=== PATIENT | male | born 1940 | race Two or more races ===

== ENCOUNTER 2017-04-23 16:24 | Inpatient (IN) | payer MEDICARE, OTHER ==
[~2017-04-23] VITALS: Ht 170.2 cm; Wt 59.4 kg
[2017-04-23 16:50] LABS: BASOPHILS % (AUTO) 0.3 % (0.0-2.0); EOSINOPHILS # (AUTO) 0.5 /CMM (0.0-0.7); EOSINOPHILS % (AUTO) 4.2 % (0.0-6.0); HEMATOCRIT 29 % (39-51); HEMOGLOBIN 10.1 g/dL (13.5-17.5); LYMPHOCYTES % (AUTO) 17.1 % (20.0-44.0); MEAN CORPUSCULAR HEMOGLOBIN 30 PG (26.0-33.0); MEAN CORPUSCULAR HGB CONC 34 g/dl (31.0-36.0); MEAN CORPUSCULAR VOLUME 87 fL (80-96); MONOCYTES # (AUTO) 0.9 /CMM (0.1-1.30); MONOCYTES % (AUTO) 7.5 % (2.0-12.0); NEUTROPHILS # (AUTO) 8.2 /CMM (1.8-8.9); NEUTROPHILS % (AUTO) 70.9 % (43.0-81.0); PLATELET COUNT (AUTO) 382 /CMM (150-450); RDW COEFFICIENT OF VARIATION 14.6 (11.5-15.0); RED BLOOD CELL COUNT(AUTO) 3.36 MIL/uL (4.5-6.0); WHITE BLOOD COUNT (AUTO) 11.6 K/uL (4.3-11.0)
[2017-04-23 17:02] LABS: CALCIUM, SERUM 10.3 mg/dL (8.5-10.1); CARBON DIOXIDE 24 mmol/L (21-32); CHLORIDE 98 mmol/L (98-107); CREATININE 1.4 mg/dL (0.6-1.3); GLUCOSE 119 mg/dL (74-106); POTASSIUM 3.8 mmol/L (3.5-5.1); SODIUM SERUM 131 mmol/L (136-145); UREA NITROGEN, BLOOD 26 mg/dL (7-18)
[2017-04-23 17:07] LABS: ACETAMINOPHEN 4 ug/ml (10-30); ALANINE AMINOTRANSFERASE 13 U/L (12-78); ALBUMIN 3.4 g/dL (3.4-5.0); ALCOHOL, BLOOD < 3 mg/dL (0-0); ALKALINE PHOSPHATASE 119 U/L (46-116); ASPARTATE AMINOTRANSFERASE 19 U/L (15-37); BILIRUBIN,DIRECT 0.1 mg/dL (0.0-0.2); BILIRUBIN,TOTAL 0.4 mg/dL (0.2-1.0); TOTAL PROTEIN, SERUM 7.3 g/dL (6.4-8.2)
[2017-04-23 17:14] LABS: SALICYLATE 1.2 mg/dL (2.8-20.0)
[2017-04-23] MEDS ORDERED: AMLO10TA2 PO (19:13)
[2017-04-23] MEDS ORDERED: ASCO-340 PO (19:13)
[2017-04-23] MEDS ORDERED: ACET-868 PO (19:13)
[2017-04-23] MEDS ORDERED: CRAN425C PO (19:13)
[2017-04-23] MEDS ORDERED: BISA10SU8 RC (19:13)
[2017-04-23] MEDS ORDERED: POLY119P2 PO (19:13)
[2017-04-23] MEDS ORDERED: MELO-270 PO (19:13)
[2017-04-23] MEDS ORDERED: MIRT15TA PO (19:13)
[2017-04-23] MEDS ORDERED: ONDA4TAB5 PO (19:13)
[2017-04-23] MEDS ORDERED: HYDR-552 PO (19:13)
[2017-04-23] MEDS ORDERED: TICA90TA PO (19:13)
[2017-04-23] MEDS ORDERED: NITR0.4T6 SL (19:13)
[2017-04-23] MEDS ORDERED: OXCA300T4 PO (19:13)
[2017-04-23] MEDS ORDERED: HYDR-4076 PO (19:13)
[2017-04-23] MEDS ORDERED: RANO500T3 PO (19:13)
[2017-04-23] MEDS ORDERED: OXYB5TAB11 PO (19:13)
[2017-04-23] MEDS ORDERED: MAGN400T6 PO (19:13)
[2017-04-23] MEDS ORDERED: FEBU80TA PO (19:13)
[2017-04-23] MEDS ORDERED: LACT1CAP61 PO (19:13)
[2017-04-23] MEDS ORDERED: NIAC500T2 PO (19:13)
[2017-04-23] MEDS ORDERED: CARV25TA PO (19:13)
[2017-04-23] MEDS ORDERED: ASPI81TA2 PO (19:13)
[2017-04-23] MEDS ORDERED: LINA290C PO (19:13)
[2017-04-23] MEDS ORDERED: MULT-213 PO (19:13)
[2017-04-23] MEDS ORDERED: DOCU-25 PO (19:13)
[2017-04-23] MEDS ORDERED: MAGN400O6 PO (19:13)
[2017-04-23] MEDS ORDERED: TAMS-12 PO (19:13)
[2017-04-23] MEDS ORDERED: BISACODYL SUPP (10 MG) 10 MG/SUPP.RECT SUPP.RECT RC PRN (19:30)
[2017-04-23] MEDS ORDERED: ONDANSETRON HCL 4 MG/5 ML SOLUTION PO PRN (19:30)
[2017-04-23] MEDS ORDERED: MISCELLANEOUS MED 1 EA EA XX ONE (19:30)
[2017-04-23] MEDS ORDERED: NITROGLYCERIN 0.4 MG/TAB BOTTLE SL SCH (19:30)
[2017-04-23] MEDS ORDERED: MAGNESIUM HYDROXIDE 30 ML UDC PO PRN ×2 (19:30→21:30)
[2017-04-23] MEDS ORDERED: MAG HYDROX/AL HYDROX/SIMETH 30 ML UDC PO PRN (21:30)
[2017-04-23] MEDS ORDERED: ACETAMINOPHEN 325 MG TABLET PO PRN (21:30)
[2017-04-23] MEDS: TAMSULOSIN 0.4 MG CAP.SR.24H PO SCH (21:35)
[2017-04-23] MEDS: CARVEDILOL 12.5 MG TABLET PO SCH (21:35)
[2017-04-23] MEDS ORDERED: NIACIN 250 MG TABLET.SA PO SCH (22:00)
[2017-04-24] MEDS ORDERED: Z GUARD REMEDY 2 OZ OINT TP PRN (07:00)
[2017-04-24 07:03] LABS: CARBON DIOXIDE 24 mmol/L (21-32); CHLORIDE 97 mmol/L (98-107); CREATININE 1.3 mg/dL (0.6-1.3); GLUCOSE 98 mg/dL (74-106); POTASSIUM 3.7 mmol/L (3.5-5.1); SODIUM SERUM 131 mmol/L (136-145); UREA NITROGEN, BLOOD 26 mg/dL (7-18)
[2017-04-24 07:09] LABS: ALANINE AMINOTRANSFERASE 7 U/L (12-78); ALBUMIN 3.2 g/dL (3.4-5.0); ALKALINE PHOSPHATASE 114 U/L (46-116); ASPARTATE AMINOTRANSFERASE 16 U/L (15-37); BILIRUBIN,DIRECT 0.1 mg/dL (0.0-0.2); BILIRUBIN,TOTAL 0.5 mg/dL (0.2-1.0); MAGNESIUM 1.4 mg/dL (1.8-2.4); PHOSPHORUS 3.1 mg/dL (2.5-4.9); TOTAL PROTEIN, SERUM 6.9 g/dL (6.4-8.2)
[2017-04-24 07:18] LABS: CHOLESTEROL 227 mg/dL (<200); HDL CHOLESTEROL 56 mg/dL (40-60); LDL 134 mg/dL (0-99); THYROID STIMULATING HORMONE 9.912 uIU/mL (0.358-3.74); TRIGLYCERIDES 126 mg/dL (30-150)
[2017-04-24 08:17] VITALS: BP 141/66
[2017-04-24] MEDS: MULTIVITAMINS,THERAGRAN 1 UDTAB TABLET PO SCH (08:34)
[2017-04-24] MEDS: DOCUSATE SODIUM 100 MG CAPSULE PO SCH ×2 (08:34→16:28)
[2017-04-24] MEDS: ASPIRIN 81 MG TAB.CHEW PO SCH (08:35)
[2017-04-24] MEDS: MAGNESIUM OXIDE 400 MG TABLET PO SCH ×2 (08:35→16:28)
[2017-04-24] MEDS: LACTOBACILLUS RHAMNOSUS GG 1 EACH CAP.SPRINK PO SCH (08:35)
[2017-04-24] MEDS: AMLODIPINE BESYLATE 10 MG TABLET PO SCH (08:35)
[2017-04-24] MEDS: MELOXICAM 7.5 MG TABLET PO SCH ×2 (08:35→16:28)
[2017-04-24] MEDS: ASCORBIC ACID 500 MG TABLET PO SCH (08:35)
[2017-04-24] MEDS: CLOPIDOGREL BISULFATE 75 MG TABLET PO SCH (08:35)
[2017-04-24] MEDS: CARVEDILOL 12.5 MG TABLET PO SCH ×2 (08:35→21:29)
[2017-04-24] MEDS: OXYBUTYNIN CHLORIDE 5 MG TABLET PO SCH (08:35)
[2017-04-24] MEDS ORDERED: TICAGRELOR 90 MG TABLET PO SCH (09:00)
[2017-04-24] MEDS ORDERED: FEBUXOSTAT 80 MG PO SCH (09:00)
[2017-04-24] MEDS ORDERED: OXCARBAZEPINE 150 MG TABLET PO SCH (09:00)
[2017-04-24] MEDS: LEVOTHYROXINE SODIUM 50 MCG TABLET PO SCH (13:39)
[2017-04-24 16:00] VITALS: BP 129/60
[2017-04-24 20:00] VITALS: BP 138/61
[2017-04-24] MEDS: ZOLPIDEM TARTRATE 5 MG TABLET PO PRN (21:30)
[2017-04-24] MEDS: TAMSULOSIN 0.4 MG CAP.SR.24H PO SCH (21:30)
[2017-04-25] MEDS ORDERED: Z GUARD REMEDY 4 OZ OINT TP PRN (05:00)
[2017-04-25 08:00] VITALS: BP 136/65
[2017-04-25] MEDS: ASCORBIC ACID 500 MG TABLET PO SCH (08:09)
[2017-04-25] MEDS: SERTRALINE HCL 25 MG TABLET PO SCH (08:09)
[2017-04-25] MEDS: ARIPIPRAZOLE 2 MG TABLET PO SCH (08:09)
[2017-04-25] MEDS: OXYBUTYNIN CHLORIDE 5 MG TABLET PO SCH (08:09)
[2017-04-25] MEDS: MULTIVITAMINS,THERAGRAN 1 UDTAB TABLET PO SCH (08:09)
[2017-04-25] MEDS: ASPIRIN 81 MG TAB.CHEW PO SCH (08:09)
[2017-04-25] MEDS: CLOPIDOGREL BISULFATE 75 MG TABLET PO SCH (08:09)
[2017-04-25] MEDS: LACTOBACILLUS RHAMNOSUS GG 1 EACH CAP.SPRINK PO SCH (08:09)
[2017-04-25] MEDS: MAGNESIUM OXIDE 400 MG TABLET PO SCH ×2 (08:09→17:24)
[2017-04-25] MEDS: LEVOTHYROXINE SODIUM 50 MCG TABLET PO SCH (08:09)
[2017-04-25] MEDS: MELOXICAM 7.5 MG TABLET PO SCH ×2 (08:09→17:24)
[2017-04-25] MEDS: AMLODIPINE BESYLATE 10 MG TABLET PO SCH (08:10)
[2017-04-25] MEDS: DOCUSATE SODIUM 100 MG CAPSULE PO SCH ×2 (08:10→17:24)
[2017-04-25] MEDS: CARVEDILOL 12.5 MG TABLET PO SCH ×2 (08:11→21:00)
[2017-04-25] MEDS: Z GUARD REMEDY 4 OZ OINT TP SCH (10:36)
[2017-04-25] MEDS: ACETAMINOPHEN 325 MG TABLET PO PRN (11:10)
[2017-04-25 20:00] VITALS: BP 146/58
[2017-04-25] MEDS: TAMSULOSIN 0.4 MG CAP.SR.24H PO SCH (21:25)
[2017-04-25] MEDS: ZOLPIDEM TARTRATE 5 MG TABLET PO PRN ×2 (21:27→22:59)
[2017-04-25] MEDS ORDERED: NIACIN EXT TAB (500MG) 500 MG TABLET.SA PO SCH (22:00)
[2017-04-25] MEDS ORDERED: ZOLPIDEM TARTRATE 5 MG TABLET ONE (22:45)
[2017-04-26] MEDS: ACETAMINOPHEN 325 MG TABLET PO PRN (00:47)
[2017-04-26 07:26] LABS: CALCIUM, SERUM 9.2 mg/dL (8.5-10.1); CARBON DIOXIDE 23 mmol/L (21-32); CHLORIDE 99 mmol/L (98-107); CREATININE 1.2 mg/dL (0.6-1.3); GLUCOSE 110 mg/dL (74-106); POTASSIUM 3.4 mmol/L (3.5-5.1); SODIUM SERUM 132 mmol/L (136-145); UREA NITROGEN, BLOOD 24 mg/dL (7-18)
[2017-04-26] MEDS: LEVOTHYROXINE SODIUM 50 MCG TABLET PO SCH (08:03)
[2017-04-26 08:19] VITALS: BP 117/52
[2017-04-26] MEDS: LACTOBACILLUS RHAMNOSUS GG 1 EACH CAP.SPRINK PO SCH (09:06)
[2017-04-26] MEDS: CLOPIDOGREL BISULFATE 75 MG TABLET PO SCH (09:06)
[2017-04-26] MEDS: MELOXICAM 7.5 MG TABLET PO SCH ×2 (09:06→17:00)
[2017-04-26] MEDS: ARIPIPRAZOLE 2 MG TABLET PO SCH (09:06)
[2017-04-26] MEDS: SERTRALINE HCL 25 MG TABLET PO SCH (09:06)
[2017-04-26] MEDS: MAGNESIUM OXIDE 400 MG TABLET PO SCH ×2 (09:07→17:00)
[2017-04-26] MEDS: OXYBUTYNIN CHLORIDE 5 MG TABLET PO SCH (09:10)
[2017-04-26] MEDS: MULTIVITAMINS,THERAGRAN 1 UDTAB TABLET PO SCH (09:10)
[2017-04-26] MEDS: ASPIRIN 81 MG TAB.CHEW PO SCH (09:10)
[2017-04-26] MEDS: ASCORBIC ACID 500 MG TABLET PO SCH (09:10)
[2017-04-26] MEDS: AMLODIPINE BESYLATE 10 MG TABLET PO SCH (09:10)
[2017-04-26] MEDS: DOCUSATE SODIUM 100 MG CAPSULE PO SCH ×2 (09:11→17:00)
[2017-04-26] MEDS: CARVEDILOL 12.5 MG TABLET PO SCH ×2 (09:11→20:48)
[2017-04-26] MEDS: Z GUARD REMEDY 4 OZ OINT TP SCH (09:11)
[2017-04-26] MEDS ORDERED: NIACIN 250 MG TABLET.SA PO SCH (15:30)
[2017-04-26 15:53] VITALS: BP 144/69
[2017-04-26 20:00] VITALS: BP 156/79
[2017-04-26] MEDS: TAMSULOSIN 0.4 MG CAP.SR.24H PO SCH (20:49)
[2017-04-26] MEDS: risperiDONE 1 MG TABLET PO SCH (20:49)
[2017-04-26] MEDS: ZOLPIDEM TARTRATE 5 MG TABLET PO PRN ×2 (20:53→23:13)
[2017-04-27 08:00] VITALS: BP 142/74
[2017-04-27] MEDS: MULTIVITAMINS,THERAGRAN 1 UDTAB TABLET PO SCH (08:26)
[2017-04-27] MEDS: AMLODIPINE BESYLATE 10 MG TABLET PO SCH (08:27)
[2017-04-27] MEDS: DOCUSATE SODIUM 100 MG CAPSULE PO SCH ×2 (08:27→17:43)
[2017-04-27] MEDS: CLOPIDOGREL BISULFATE 75 MG TABLET PO SCH (08:27)
[2017-04-27] MEDS: MAGNESIUM OXIDE 400 MG TABLET PO SCH ×2 (08:27→17:43)
[2017-04-27] MEDS: CARVEDILOL 12.5 MG TABLET PO SCH ×2 (08:27→21:10)
[2017-04-27] MEDS: MELOXICAM 7.5 MG TABLET PO SCH ×2 (08:27→17:43)
[2017-04-27] MEDS: ASPIRIN 81 MG TAB.CHEW PO SCH (08:28)
[2017-04-27] MEDS: SERTRALINE HCL 25 MG TABLET PO SCH (08:28)
[2017-04-27] MEDS: OXYBUTYNIN CHLORIDE 5 MG TABLET PO SCH (08:28)
[2017-04-27] MEDS: LEVOTHYROXINE SODIUM 50 MCG TABLET PO SCH (08:28)
[2017-04-27] MEDS: LACTOBACILLUS RHAMNOSUS GG 1 EACH CAP.SPRINK PO SCH (08:28)
[2017-04-27] MEDS: ASCORBIC ACID 500 MG TABLET PO SCH (08:28)
[2017-04-27] MEDS: Z GUARD REMEDY 4 OZ OINT TP SCH (08:29)
[2017-04-27 14:09] LABS: APPEARANCE,URINE CLEAR (CLEAR); BILIRUBIN,URINE NEGATIVE (NEGATIVE); BLOOD, URINE NEGATIVE Ery/uL (NEGATIVE); COLOR,URINE YELLOW (YELLOW); KETONES,URINE TRACE (NEGATIVE); LEUKOCYTE ESTERASE ,URINE 3+ (NEGATIVE); NITRITE, URINE POSITIVE (NEGATIVE); PH,URINE 6.5 (5.0-8.0); PROTEIN,URINE NEGATIVE (NEGATIVE); UGLUCOSE NEGATIVE (NEGATIVE); UROBILINOGEN,URINE 0.2 EU/dL (0.2)
[2017-04-27 15:59] VITALS: BP 135/63
[2017-04-27 16:09] LABS: BACTERIA,URINE 3+ /HPF (None Seen); SQUAMOUS EPITHELIAL CELL,UR 0-2 /HPF (None Seen); WBC,URINE 21-50 /HPF (0-3)
[2017-04-27] MEDS: CEPHALEXIN MONOHYDRATE 500 MG CAPSULE PO SCH (17:43)
[2017-04-27 20:00] VITALS: BP 149/63
[2017-04-27] MEDS: TAMSULOSIN 0.4 MG CAP.SR.24H PO SCH (21:12)
[2017-04-27] MEDS: risperiDONE 1 MG TABLET PO SCH (21:12)
[2017-04-28] MEDS: CEPHALEXIN MONOHYDRATE 500 MG CAPSULE PO SCH ×5 (00:16→23:14)
[2017-04-28] MEDS: ACETAMINOPHEN 325 MG TABLET PO PRN (00:25)
[2017-04-28] MEDS: ZOLPIDEM TARTRATE 5 MG TABLET PO PRN (00:26)
[2017-04-28] MEDS: LEVOTHYROXINE SODIUM 50 MCG TABLET PO SCH (08:42)
[2017-04-28 08:47] VITALS: BP 118/61
[2017-04-28] MEDS: MAGNESIUM OXIDE 400 MG TABLET PO SCH ×2 (09:08→18:04)
[2017-04-28] MEDS: LACTOBACILLUS RHAMNOSUS GG 1 EACH CAP.SPRINK PO SCH (09:08)
[2017-04-28] MEDS: CARVEDILOL 12.5 MG TABLET PO SCH ×2 (09:08→21:17)
[2017-04-28] MEDS: risperiDONE 0.25 MG TABLET PO SCH (09:08)
[2017-04-28] MEDS: ASCORBIC ACID 500 MG TABLET PO SCH (09:08)
[2017-04-28] MEDS: DOCUSATE SODIUM 100 MG CAPSULE PO SCH ×2 (09:09→18:04)
[2017-04-28] MEDS: SERTRALINE HCL 25 MG TABLET PO SCH (09:09)
[2017-04-28] MEDS: ASPIRIN 81 MG TAB.CHEW PO SCH (09:09)
[2017-04-28] MEDS: AMLODIPINE BESYLATE 10 MG TABLET PO SCH (09:09)
[2017-04-28] MEDS: CLOPIDOGREL BISULFATE 75 MG TABLET PO SCH (09:09)
[2017-04-28] MEDS: MULTIVITAMINS,THERAGRAN 1 UDTAB TABLET PO SCH (09:09)
[2017-04-28] MEDS: Z GUARD REMEDY 4 OZ OINT TP SCH (09:10)
[2017-04-28] MEDS: MELOXICAM 7.5 MG TABLET PO SCH ×2 (09:10→18:05)
[2017-04-28] MEDS: OXYBUTYNIN CHLORIDE 5 MG TABLET PO SCH (09:10)
[2017-04-28 15:57] VITALS: BP 117/71
[2017-04-28 20:11] VITALS: BP 150/67
[2017-04-28] MEDS: TAMSULOSIN 0.4 MG CAP.SR.24H PO SCH (21:17)
[2017-04-28] MEDS: risperiDONE 1 MG TABLET PO SCH (21:17)
[2017-04-29] MEDS: CEPHALEXIN MONOHYDRATE 500 MG CAPSULE PO SCH ×4 (05:14→23:44)
[2017-04-29 08:00] VITALS: BP 103/57
[2017-04-29] MEDS: ASCORBIC ACID 500 MG TABLET PO SCH (08:10)
[2017-04-29] MEDS: LACTOBACILLUS RHAMNOSUS GG 1 EACH CAP.SPRINK PO SCH (08:10)
[2017-04-29] MEDS: DOCUSATE SODIUM 100 MG CAPSULE PO SCH ×2 (08:10→18:28)
[2017-04-29] MEDS: CLOPIDOGREL BISULFATE 75 MG TABLET PO SCH (08:10)
[2017-04-29] MEDS: MELOXICAM 7.5 MG TABLET PO SCH ×2 (08:10→18:28)
[2017-04-29] MEDS: OXYBUTYNIN CHLORIDE 5 MG TABLET PO SCH (08:10)
[2017-04-29] MEDS: MAGNESIUM OXIDE 400 MG TABLET PO SCH ×2 (08:10→18:28)
[2017-04-29] MEDS: risperiDONE 0.25 MG TABLET PO SCH (08:11)
[2017-04-29] MEDS: MULTIVITAMINS,THERAGRAN 1 UDTAB TABLET PO SCH (08:11)
[2017-04-29] MEDS: LEVOTHYROXINE SODIUM 50 MCG TABLET PO SCH (08:11)
[2017-04-29] MEDS: ASPIRIN 81 MG TAB.CHEW PO SCH (08:11)
[2017-04-29] MEDS: SERTRALINE HCL 25 MG TABLET PO SCH (08:11)
[2017-04-29] MEDS: Z GUARD REMEDY 4 OZ OINT TP SCH (08:12)
[2017-04-29] MEDS: AMLODIPINE BESYLATE 10 MG TABLET PO SCH (08:13)
[2017-04-29] MEDS: CARVEDILOL 12.5 MG TABLET PO SCH ×2 (08:13→21:39)
[2017-04-29] MEDS: SULFAMETH/TRIMETH 800/160 MG 1 UDTAB TABLET PO SCH (14:10)
[2017-04-29] MEDS: FERROUS SULFATE (325 MG) 325 MG/TAB TABLET PO SCH ×2 (14:10→18:28)
[2017-04-29 16:00] VITALS: BP 129/65
[2017-04-29 20:18] VITALS: BP 116/60
[2017-04-29] MEDS: risperiDONE 1 MG TABLET PO SCH (21:39)
[2017-04-29] MEDS: TAMSULOSIN 0.4 MG CAP.SR.24H PO SCH (21:40)
[2017-04-29 23:40] VITALS: BP 148/63
[2017-04-29] MEDS: ZOLPIDEM TARTRATE 5 MG TABLET PO PRN (23:44)
[2017-04-30] MEDS: SULFAMETH/TRIMETH 800/160 MG 1 UDTAB TABLET PO SCH ×2 (01:28→14:16)
[2017-04-30] MEDS: CEPHALEXIN MONOHYDRATE 500 MG CAPSULE PO SCH ×2 (05:18→11:45)
[2017-04-30 08:00] VITALS: BP 116/60
[2017-04-30] MEDS: LEVOTHYROXINE SODIUM 50 MCG TABLET PO SCH (08:12)
[2017-04-30] MEDS: CLOPIDOGREL BISULFATE 75 MG TABLET PO SCH (08:33)
[2017-04-30] MEDS: ASCORBIC ACID 500 MG TABLET PO SCH (08:33)
[2017-04-30] MEDS: FERROUS SULFATE (325 MG) 325 MG/TAB TABLET PO SCH ×2 (08:34→16:58)
[2017-04-30] MEDS: ASPIRIN 81 MG TAB.CHEW PO SCH (08:34)
[2017-04-30] MEDS: AMLODIPINE BESYLATE 10 MG TABLET PO SCH (08:34)
[2017-04-30] MEDS: OXYBUTYNIN CHLORIDE 5 MG TABLET PO SCH (08:34)
[2017-04-30] MEDS: LACTOBACILLUS RHAMNOSUS GG 1 EACH CAP.SPRINK PO SCH (08:34)
[2017-04-30] MEDS: MELOXICAM 7.5 MG TABLET PO SCH ×2 (08:34→16:58)
[2017-04-30] MEDS: SERTRALINE HCL 25 MG TABLET PO SCH (08:34)
[2017-04-30] MEDS: MULTIVITAMINS,THERAGRAN 1 UDTAB TABLET PO SCH (08:34)
[2017-04-30] MEDS: risperiDONE 0.25 MG TABLET PO SCH (08:35)
[2017-04-30] MEDS: CARVEDILOL 12.5 MG TABLET PO SCH ×2 (08:35→21:32)
[2017-04-30] MEDS: DOCUSATE SODIUM 100 MG CAPSULE PO SCH ×2 (08:35→16:57)
[2017-04-30] MEDS: MAGNESIUM OXIDE 400 MG TABLET PO SCH ×2 (08:35→16:58)
[2017-04-30] MEDS: Z GUARD REMEDY 4 OZ OINT TP SCH (08:36)
[2017-04-30 16:00] VITALS: BP 134/77
[2017-04-30 20:38] VITALS: BP 155/77
[2017-04-30] MEDS: TAMSULOSIN 0.4 MG CAP.SR.24H PO SCH (21:31)
[2017-04-30] MEDS: risperiDONE 1 MG TABLET PO SCH (21:31)
[2017-05-01] MEDS: SULFAMETH/TRIMETH 800/160 MG 1 UDTAB TABLET PO SCH ×2 (03:05→13:53)
[2017-05-01 06:59] LABS: BASOPHILS % (AUTO) 0.3 % (0.0-2.0); EOSINOPHILS # (AUTO) 0.7 /CMM (0.0-0.7); EOSINOPHILS % (AUTO) 7.5 % (0.0-6.0); HEMATOCRIT 25 % (39-51); HEMOGLOBIN 8.6 g/dL (13.5-17.5); LYMPHOCYTES # (AUTO) 2.5 /CMM (0.8-4.8); LYMPHOCYTES % (AUTO) 25.5 % (20.0-44.0); MEAN CORPUSCULAR HEMOGLOBIN 30 PG (26.0-33.0); MEAN CORPUSCULAR HGB CONC 35 g/dl (31.0-36.0); MEAN CORPUSCULAR VOLUME 87 fL (80-96); MONOCYTES # (AUTO) 0.9 /CMM (0.1-1.30); MONOCYTES % (AUTO) 8.6 % (2.0-12.0); NEUTROPHILS # (AUTO) 5.8 /CMM (1.8-8.9); NEUTROPHILS % (AUTO) 58.1 % (43.0-81.0); PLATELET COUNT (AUTO) 302 /CMM (150-450); RDW COEFFICIENT OF VARIATION 14.8 (11.5-15.0); RED BLOOD CELL COUNT(AUTO) 2.85 MIL/uL (4.5-6.0); WHITE BLOOD COUNT (AUTO) 9.9 K/uL (4.3-11.0)
[2017-05-01 07:29] LABS: CALCIUM, SERUM 9.4 mg/dL (8.5-10.1); CARBON DIOXIDE 23 mmol/L (21-32); CHLORIDE 96 mmol/L (98-107); CREATININE 1.4 mg/dL (0.6-1.3); GLUCOSE 110 mg/dL (74-106); MAGNESIUM 1.6 mg/dL (1.8-2.4); PHOSPHORUS 2.9 mg/dL (2.5-4.9); POTASSIUM 3.1 mmol/L (3.5-5.1); SODIUM SERUM 131 mmol/L (136-145); UREA NITROGEN, BLOOD 27 mg/dL (7-18)
[2017-05-01 08:00] VITALS: BP 125/69
[2017-05-01] MEDS: DOCUSATE SODIUM 100 MG CAPSULE PO SCH ×2 (08:25→18:39)
[2017-05-01] MEDS: MAGNESIUM OXIDE 400 MG TABLET PO SCH ×2 (08:26→17:35)
[2017-05-01] MEDS: ASCORBIC ACID 500 MG TABLET PO SCH (08:26)
[2017-05-01] MEDS: SERTRALINE HCL 25 MG TABLET PO SCH (08:26)
[2017-05-01] MEDS: risperiDONE 0.25 MG TABLET PO SCH (08:26)
[2017-05-01] MEDS: MULTIVITAMINS,THERAGRAN 1 UDTAB TABLET PO SCH (08:26)
[2017-05-01] MEDS: OXYBUTYNIN CHLORIDE 5 MG TABLET PO SCH (08:27)
[2017-05-01] MEDS: AMLODIPINE BESYLATE 10 MG TABLET PO SCH (08:27)
[2017-05-01] MEDS: MELOXICAM 7.5 MG TABLET PO SCH ×2 (08:27→18:44)
[2017-05-01] MEDS: CLOPIDOGREL BISULFATE 75 MG TABLET PO SCH (08:27)
[2017-05-01] MEDS: LACTOBACILLUS RHAMNOSUS GG 1 EACH CAP.SPRINK PO SCH (08:27)
[2017-05-01] MEDS: FERROUS SULFATE (325 MG) 325 MG/TAB TABLET PO SCH ×2 (08:27→18:39)
[2017-05-01] MEDS: ASPIRIN 81 MG TAB.CHEW PO SCH (08:27)
[2017-05-01] MEDS: LEVOTHYROXINE SODIUM 50 MCG TABLET PO SCH (08:27)
[2017-05-01] MEDS: CARVEDILOL 12.5 MG TABLET PO SCH ×2 (08:28→21:30)
[2017-05-01] MEDS: Z GUARD REMEDY 4 OZ OINT TP SCH (09:29)
[2017-05-01] MEDS ORDERED: MAGNESIUM OXIDE 400 MG TABLET PO ONE (10:00)
[2017-05-01] MEDS ORDERED: POTASSIUM CHLORIDE 20 MEQ TAB.PRT.SR PO ONE (10:00)
[2017-05-01 16:00] VITALS: BP 131/65
[2017-05-01 20:01] VITALS: BP 128/55
[2017-05-01] MEDS: risperiDONE 1 MG TABLET PO SCH (21:28)
[2017-05-01] MEDS: TAMSULOSIN 0.4 MG CAP.SR.24H PO SCH (21:28)
[2017-05-01] MEDS: ZOLPIDEM TARTRATE 5 MG TABLET PO PRN ×2 (21:34→22:57)
[2017-05-02] MEDS: SULFAMETH/TRIMETH 800/160 MG 1 UDTAB TABLET PO SCH ×2 (01:11→13:00)
[2017-05-02 07:48] LABS: CALCIUM, SERUM 9.6 mg/dL (8.5-10.1); CARBON DIOXIDE 24 mmol/L (21-32); CHLORIDE 97 mmol/L (98-107); CREATININE 1.2 mg/dL (0.6-1.3); GLUCOSE 100 mg/dL (74-106); MAGNESIUM 1.5 mg/dL (1.8-2.4); POTASSIUM 3.7 mmol/L (3.5-5.1); SODIUM SERUM 129 mmol/L (136-145); UREA NITROGEN, BLOOD 19 mg/dL (7-18)
[2017-05-02 08:24] VITALS: BP 117/57
[2017-05-02] MEDS: CARVEDILOL 12.5 MG TABLET PO SCH (09:00)
[2017-05-02] MEDS: AMLODIPINE BESYLATE 10 MG TABLET PO SCH (09:00)
[2017-05-02] MEDS: DOCUSATE SODIUM 100 MG CAPSULE PO SCH ×2 (10:06→17:00)
[2017-05-02] MEDS: CLOPIDOGREL BISULFATE 75 MG TABLET PO SCH (10:06)
[2017-05-02] MEDS: risperiDONE 0.25 MG TABLET PO SCH (10:06)
[2017-05-02] MEDS: SERTRALINE HCL 25 MG TABLET PO SCH (10:06)
[2017-05-02] MEDS: LEVOTHYROXINE SODIUM 50 MCG TABLET PO SCH (10:06)
[2017-05-02] MEDS: ASCORBIC ACID 500 MG TABLET PO SCH (10:06)
[2017-05-02] MEDS: OXYBUTYNIN CHLORIDE 5 MG TABLET PO SCH (10:07)
[2017-05-02] MEDS: ASPIRIN 81 MG TAB.CHEW PO SCH (10:07)
[2017-05-02] MEDS: MAGNESIUM OXIDE 400 MG TABLET PO SCH ×2 (10:07→17:00)
[2017-05-02] MEDS: MELOXICAM 7.5 MG TABLET PO SCH ×2 (10:07→16:55)
[2017-05-02] MEDS: LACTOBACILLUS RHAMNOSUS GG 1 EACH CAP.SPRINK PO SCH (10:07)
[2017-05-02] MEDS: MULTIVITAMINS,THERAGRAN 1 UDTAB TABLET PO SCH (10:08)
[2017-05-02] MEDS ORDERED: MAGNESIUM OXIDE 400 MG TABLET PO ONE (10:30)
[2017-05-02] MEDS: Z GUARD REMEDY 4 OZ OINT TP SCH (10:34)
[2017-05-02] MEDS: FERROUS SULFATE (325 MG) 325 MG/TAB TABLET PO SCH ×2 (12:33→17:00)
[2017-05-02 16:00] VITALS: BP 138/60
[2017-05-02 16:32] VITALS: BP 138/60
== END 2017-05-02 17:10 | DRG 885 ==
LOC: ER 16:25 → GPS 19:27
PROVIDERS: ADMIT Psychiatry & Neurology Psychiatry; ATTEND Nurse Practitioner Acute Care
DX: F29 Unspecified psychosis not due to a substance or known physiological condition (principal); N18.9 Chronic kidney disease, unspecified; N39.0 Urinary tract infection, site not specified; E87.1 Hypo-osmolality and hyponatremia; F03.91 Unspecified dementia, unspecified severity, with behavioral disturbance; I12.9 Hypertensive chronic kidney disease with stage 1 through stage 4 chronic kidney disease, or unspecified chronic kidney disease; B95.62 Methicillin resistant Staphylococcus aureus infection as the cause of diseases classified elsewhere; M10.9 Gout, unspecified; K58.9 Irritable bowel syndrome, unspecified; I25.10 Atherosclerotic heart disease of native coronary artery without angina pectoris; M19.90 Unspecified osteoarthritis, unspecified site; N40.1 Benign prostatic hyperplasia with lower urinary tract symptoms; Z96.641 Presence of right artificial hip joint; Z73.6 Limitation of activities due to disability; E78.5 Hyperlipidemia, unspecified; E83.42 Hypomagnesemia; D64.9 Anemia, unspecified; E03.9 Hypothyroidism, unspecified; N32.81 Overactive bladder; E87.6 Hypokalemia; G40.909 Epilepsy, unspecified, not intractable, without status epilepticus; F31.9 Bipolar disorder, unspecified
CPT/HCPCS: 36415; 71010-TC; 80048-TC; 80061-TC; 80076-TC; 81000-TC; 82272-TC; 83540-TC; 83735-TC; 84100-TC; 84439-TC; 84443-TC; 85025-TC; 87081-TC; 87086-TC; 97001-TC; A4606; G0480; Q0162; Z7610

== ENCOUNTER 2017-11-09 14:36 | Inpatient (IN) | payer MEDICARE, MEDICAID ==
[~2017-11-09] VITALS: Ht 154.9 cm; Wt 56.7 kg
[~2017-11-09 14:36] MED LIST: ACET-868 PO; AMLO10TA2 PO; ASCO-340 PO; ASPI-1169 PO; BISA10SU8 RC; CARV25TA PO; CRAN425C6 PO; DOCU-141 PO; FEBU80TA PO; HYDR-4076 PO; HYDR-552 PO; LACT1CAP61 PO; LINA290C PO; MAGN400O6 PO; MAGN400T6 PO; MELO-105 PO; MIRT15TA PO; MULT-213 PO; NIAC500T2 PO; NITR0.4T48 SL; ONDA4TAB5 PO; OXCA300T4 PO; OXYB5TAB11 PO; POLY119P2 PO; RANO500T3 PO; TAMS-12 PO; TICA90TA PO
--- NOTE | 2017-11-09 14:36 | NUR ---
PT RECIEVED FROM [facility] C/O CHEST PAIN X30 MIN 04/22 NONRADIATING. NO SOB AT THIS TIME. VSS NAD A/OX4 ABLE TO MAKE NEEDS KNOWN. WILL CONTINUE TO MONITOR FOR ANY CHANGES DURING THE SHIFT.
--- NOTE | 2017-11-09 14:46 | NUR ---
ER MD REYNOSO AT BEDSIDE
--- NOTE | 2017-11-09 14:50 | NUR ---
BLOOD SENT TO LAB WITH ACQUISITION ANALYST
[2017-11-09] MEDS ORDERED: NITROGLYCERIN PACKET 1 GM PACKET ONE (14:59)
[2017-11-09] MEDS ORDERED: ASPIRIN 325 MG TABLET ONE (14:59)
[2017-11-09] MEDS ORDERED: NITROGLYCERIN PACKET 1 GM PACKET TD ONE (15:00)
[2017-11-09] MEDS ORDERED: ASPIRIN 325 MG TABLET PO ONE (15:00)
--- NOTE | 2017-11-09 15:09 | NUR ---
CALLED NURSING SUP. FOR TELE BED
--- NOTE | 2017-11-09 15:10 | NUR ---
TURRET PUNCH OPERATOR AT [facility]
[2017-11-09 15:12] LABS: BASOPHILS # (AUTO) 0.1 /CMM (0.0-0.2); BASOPHILS % (AUTO) 0.6 % (0.0-2.0); EOSINOPHILS # (AUTO) 0.6 /CMM (0.0-0.7); EOSINOPHILS % (AUTO) 5.4 % (0.0-6.0); HEMATOCRIT 36 % (39-51); HEMOGLOBIN 12.3 g/dL (13.5-17.5); LYMPHOCYTES # (AUTO) 2.1 /CMM (0.8-4.8); LYMPHOCYTES % (AUTO) 20.1 % (20.0-44.0); MEAN CORPUSCULAR HEMOGLOBIN 27 PG (26.0-33.0); MEAN CORPUSCULAR HGB CONC 34 g/dl (31.0-36.0); MEAN CORPUSCULAR VOLUME 79 fL (80-96); MONOCYTES # (AUTO) 0.8 /CMM (0.1-1.30); MONOCYTES % (AUTO) 7.5 % (2.0-12.0); NEUTROPHILS # (AUTO) 6.7 /CMM (1.8-8.9); NEUTROPHILS % (AUTO) 66.4 % (43.0-81.0); PLATELET COUNT (AUTO) 206 /CMM (150-450); RDW COEFFICIENT OF VARIATION 14.8 (11.5-15.0); RED BLOOD CELL COUNT(AUTO) 4.55 MIL/uL (4.5-6.0); WHITE BLOOD COUNT (AUTO) 10.3 K/uL (4.3-11.0)
[2017-11-09] MEDS ORDERED: MAG30ORA PO (15:14)
[2017-11-09] MEDS ORDERED: HYDR-552 PO (15:14)
[2017-11-09] MEDS ORDERED: DOXY100T2 PO (15:14)
[2017-11-09] MEDS ORDERED: NIAC250T8 PO (15:14)
[2017-11-09] MEDS ORDERED: ASPI-1152 PO (15:14)
[2017-11-09] MEDS ORDERED: FAMO20TA8 PO (15:14)
[2017-11-09] MEDS ORDERED: FERR-58 PO (15:14)
[2017-11-09] MEDS ORDERED: SERT100T PO (15:14)
[2017-11-09] MEDS ORDERED: EPOE1VIA7 SQ (15:14)
[2017-11-09] MEDS ORDERED: ONDA4TAB5 PO (15:14)
[2017-11-09] MEDS ORDERED: LEVO50TA8 PO (15:14)
[2017-11-09] MEDS ORDERED: OXYB10TA PO (15:14)
[2017-11-09] MEDS ORDERED: GABA-532 PO (15:14)
[2017-11-09] MEDS ORDERED: ACID1TAB12 PO (15:14)
[2017-11-09] MEDS ORDERED: RISP0.253 PO ×2 (15:14)
[2017-11-09 15:21] LABS: CALCIUM, SERUM 9.3 mg/dL (8.5-10.1); CARBON DIOXIDE 26 mmol/L (21-32); CHLORIDE 103 mmol/L (98-107); GLUCOSE 117 mg/dL (74-106); POTASSIUM 3.7 mmol/L (3.5-5.1); SODIUM SERUM 134 mmol/L (136-145); UREA NITROGEN, BLOOD 32 mg/dL (7-18)
[2017-11-09 15:25] LABS: INR 1.04 (0.85-1.15)
[2017-11-09 15:27] LABS: ALANINE AMINOTRANSFERASE 35 U/L (12-78); ALBUMIN 2.8 g/dL (3.4-5.0); ALKALINE PHOSPHATASE 168 U/L (46-116); ASPARTATE AMINOTRANSFERASE 101 U/L (15-37); BILIRUBIN,DIRECT 0.1 mg/dL (0.0-0.2); BILIRUBIN,TOTAL 0.4 mg/dL (0.2-1.0); TOTAL PROTEIN, SERUM 7.3 g/dL (6.4-8.2)
[2017-11-09 15:29] LABS: TROPONIN I < 0.017 ng/mL (0.00-0.056)
--- NOTE | 2017-11-09 15:45 | NUR ---
[facility] PAGED [phone] ANDONIAN OLAP DEVELOPER
--- NOTE | 2017-11-09 15:58 | NUR ---
REPORT GIVEN TO ETHAN
[2017-11-09 16:00] VITALS: BP 155/71
[2017-11-09] MEDS ORDERED: MAG HYDROX/AL HYDROX/SIMETH 30 ML UDC PO PRN (16:30)
[2017-11-09] MEDS ORDERED: ACETAMINOPHEN 325 MG TABLET PO PRN (16:30)
[2017-11-09] MEDS ORDERED: NITROGLYCERIN 0.4 MG/TAB BOTTLE SL PRN (16:30)
[2017-11-09] MEDS ORDERED: HYDROCODONE/APAP 5/325MG 1 EACH TABLET PO PRN (16:30)
[2017-11-09] MEDS ORDERED: Z GUARD REMEDY 2 OZ OINT TP PRN (16:30)
[2017-11-09] MEDS ORDERED: MAGNESIUM HYDROXIDE 30 ML UDC PO PRN (16:30)
[2017-11-09 17:00] VITALS: BP 155/71
[2017-11-09] MEDS ORDERED: IV NS 0.9% 1,000 ML BAG IV ONE (17:00)
[2017-11-09] MEDS ORDERED: ONDANSETRON 4 MG TAB.RAPDIS PO PRN (17:00)
--- NOTE | 2017-11-09 17:00 | NUR ---
MS RN RECEIVED A NEW ADMISSION ,77 YEAR OLD MALE,AWAKE,ALERT,ORIENTED X3,FARSI SPEAKING, NOT IN ANY FORM OF DISTRESS,RESPIRATIONS EVEN AND UNLABORED,NO SOB NOTED, LUNGS ARE CLEAR,ABDOMEN SOFT,POSITIVE BOWEL SOUNDS, DENIES PAIN AT THIS TIME, WILL MONITOR PATIENT'S CONDITION.
--- NOTE | 2017-11-09 17:30 | NUR ---
MS RN ON BED, DUE MEDS GIVEN,TOLERATED WELL, AT BEDSIDE,
[2017-11-09] MEDS: DOCUSATE SODIUM 100 MG CAPSULE PO SCH (18:16)
[2017-11-09] MEDS: FERROUS SULFATE (325 MG) 325 MG/TAB TABLET PO SCH (18:16)
[2017-11-09] MEDS: GABAPENTIN 100 MG CAPSULE PO SCH (18:17)
[2017-11-09] MEDS: DOXYCYCLINE HYCLATE (100 MG) 100 MG TABLET PO SCH (18:17)
[2017-11-09] MEDS: MAGNESIUM OXIDE 400 MG TABLET PO SCH (18:20)
--- NOTE | 2017-11-09 19:45 | NUR ---
RN OPENING NOTES RECEIVED REPORT FROM JINHIFT RNIFEOMA. FOUND Pt AWAKE, RESTING IN BED. Pt IS A/OX3, VERBAL, FARSI SPEAKING ONLY. NO S/S OF ACUTE DISTRESS OR SOB NOTED. 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 IV ACCESS ON LFA #20G, IVF NS @75ML/HR. SAFETY MEASURES IN PLACE. BED LOW, LOCKED, HOB ELEVATED, SIDE RAILS UP, CALL LIGHT AND BEDSIDE TABLE WITHIN REACH. WILL CONTINUE TO MONITOR Pt THROUGHOUT THE NIGHT FOR SAFETY.
[2017-11-09 20:00] VITALS: BP 109/75
[2017-11-09] MEDS: CARVEDILOL 12.5 MG TABLET PO SCH (21:00)
[2017-11-09] MEDS ORDERED: NIACIN 250 MG TABLET.SA PO SCH (22:00)
[2017-11-09] MEDS ORDERED: SERTRALINE HCL 50 MG TABLET PO SCH (22:00)
[2017-11-09] MEDS ORDERED: TAMSULOSIN 0.4 MG CAP.SR.24H PO SCH (22:00)
[2017-11-09] MEDS ORDERED: risperiDONE 0.25 MG TABLET PO SCH (22:00)
--- NOTE | 2017-11-09 22:00 | NUR ---
CHANGED ROOMS. MOVED Pt TO ROOM 325-1 FROM 326-1.
[2017-11-10] VITALS: BP 134/65
[2017-11-10 04:00] VITALS: BP 155/72
[2017-11-10 06:00] VITALS: BP 154/80
[2017-11-10 06:36] LABS: BASOPHILS % (AUTO) 0.5 % (0.0-2.0); EOSINOPHILS # (AUTO) 0.5 /CMM (0.0-0.7); EOSINOPHILS % (AUTO) 6.8 % (0.0-6.0); HEMATOCRIT 33 % (39-51); HEMOGLOBIN 11.3 g/dL (13.5-17.5); LYMPHOCYTES # (AUTO) 2.9 /CMM (0.8-4.8); LYMPHOCYTES % (AUTO) 35.6 % (20.0-44.0); MEAN CORPUSCULAR HEMOGLOBIN 28 PG (26.0-33.0); MEAN CORPUSCULAR HGB CONC 34 g/dl (31.0-36.0); MEAN CORPUSCULAR VOLUME 81 fL (80-96); MONOCYTES # (AUTO) 0.8 /CMM (0.1-1.30); NEUTROPHILS # (AUTO) 3.8 /CMM (1.8-8.9); NEUTROPHILS % (AUTO) 47.1 % (43.0-81.0); PLATELET COUNT (AUTO) 191 /CMM (150-450); RED BLOOD CELL COUNT(AUTO) 4.11 MIL/uL (4.5-6.0); WHITE BLOOD COUNT (AUTO) 8.1 K/uL (4.3-11.0)
--- NOTE | 2017-11-10 06:50 | NUR ---
RN CLOSING NOTES NO SIGNIFICANT CHANGES IN Pt's CONDITION DURING THE NIGHT. Pt REMAINS STABLE AT THIS TIME. NO S/S OF ACUTE DISTRESS OR SOB NOTED DURING THE SHIFT. ALL NEEDS MET AND ATTENDED TO. SAFETY MEASURES IN PLACE. TELE READING SR 66 WITH 1ST DEGREE AVB. WILL ENDORSE TO DAYSHIFT RN FOR Pt's JEF.
[2017-11-10 07:00] LABS: ALANINE AMINOTRANSFERASE 29 U/L (12-78); ALBUMIN 2.5 g/dL (3.4-5.0); ALKALINE PHOSPHATASE 138 U/L (46-116); ASPARTATE AMINOTRANSFERASE 34 U/L (15-37); BILIRUBIN,TOTAL 0.3 mg/dL (0.2-1.0); CALCIUM, SERUM 9.2 mg/dL (8.5-10.1); CARBON DIOXIDE 24 mmol/L (21-32); CHLORIDE 106 mmol/L (98-107); GLUCOSE 86 mg/dL (74-106); PHOSPHORUS 2.6 mg/dL (2.5-4.9); POTASSIUM 3.6 mmol/L (3.5-5.1); SODIUM SERUM 140 mmol/L (136-145); TOTAL PROTEIN, SERUM 6.5 g/dL (6.4-8.2); UREA NITROGEN, BLOOD 28 mg/dL (7-18)
[2017-11-10 07:03] LABS: CHOLESTEROL 183 mg/dL (<200); HDL CHOLESTEROL 51 mg/dL (40-60); LDL 111 mg/dL (0-99); TRIGLYCERIDES 87 mg/dL (30-150)
--- NOTE | 2017-11-10 07:20 | NUR ---
RN NOTES: PATIENT RESTING IN BED, NONLABORED BREATHING ON ROOM AIR. NO SIGNS OF DISTRESS. PATIENT DENIES CHEST PAIN. IV SITE ON LEFT FOREARM PATENT AND INTACT. BED IN LOWEST LOCKED POSITION. PATIENT AOX3, CALL LIGHT WITHIN REACH, WILL CONTINUE TO MONITOR. PATIENT WITH SINUS RHYTHM AV BLOCK FIRST DEGREE 70
[2017-11-10] MEDS ORDERED: LEVOTHYROXINE SODIUM 50 MCG TABLET PO SCH (07:30)
[2017-11-10] MEDS ORDERED: FAMOTIDINE (20 MG) 20 MG TABLET PO SCH (07:30)
[2017-11-10 07:33] LABS: MAGNESIUM 1.2 mg/dL (1.8-2.4)
[2017-11-10] MEDS ORDERED: IV NS 0.9% 1,000 ML IV PRN (07:37)
[2017-11-10 08:00] VITALS: BP 154/80
[2017-11-10 08:22] LABS: THYROID STIMULATING HORMONE 1.229 uIU/mL (0.358-3.74)
[2017-11-10] MEDS: FERROUS SULFATE (325 MG) 325 MG/TAB TABLET PO SCH (08:42)
[2017-11-10] MEDS: MAGNESIUM OXIDE 400 MG TABLET PO SCH (08:42)
[2017-11-10] MEDS: DOCUSATE SODIUM 100 MG CAPSULE PO SCH (08:42)
[2017-11-10] MEDS: DOXYCYCLINE HYCLATE (100 MG) 100 MG TABLET PO SCH (08:44)
[2017-11-10] MEDS: GABAPENTIN 100 MG CAPSULE PO SCH (08:45)
[2017-11-10] MEDS ORDERED: MULTIVITAMINS,THERAGRAN 1 UDTAB TABLET PO SCH (09:00)
[2017-11-10] MEDS ORDERED: OXYBUTYNIN CHLORIDE ER 5 MG TAB PO SCH (09:00)
[2017-11-10] MEDS ORDERED: risperiDONE 0.25 MG TABLET PO SCH (09:00)
[2017-11-10] MEDS: POTASSIUM CHLORIDE 20 MEQ TAB.PRT.SR PO SCH ×4 (09:00→14:00)
[2017-11-10] MEDS ORDERED: ASPIRIN EC 81 MG TABLET.DR PO SCH (09:00)
[2017-11-10] MEDS ORDERED: ASCORBIC ACID 500 MG TABLET PO SCH (09:00)
[2017-11-10] MEDS ORDERED: ACIDOPHILUS/BULGARICUS 1 EACH TAB.CHEW PO SCH (09:00)
[2017-11-10] MEDS ORDERED: AMLODIPINE BESYLATE 10 MG TABLET PO SCH (09:00)
[2017-11-10] MEDS ORDERED: Medication Not On Formulary EA (Cranberry Extract (Cranberry) 425 MG) PO SCH (09:00)
[2017-11-10] MEDS: CARVEDILOL 12.5 MG TABLET PO SCH (09:58)
[2017-11-10] MEDS: Magnesium 1GM/D5W 100ML PREMIX 100 ML IV SCH ×3 (09:59→12:40)
--- NOTE | 2017-11-10 10:00 | NUR ---
RN NOTES: LEFT LOWER EXTREMITY, LATERAL SIDE BUMP OF 2 CM BY 1 CM, NO REDNESS NOTED. PATIENT STATES THAT HE HAS HAD IT FOR A LONG TIME AND THAT HE PLACES A PROTECTION DRESSING ON, SKIN KEPT CLEAN AND DRY. NO PAIN PER PATIENT
[2017-11-10] MEDS ORDERED: Magnesium 1GM/D5W 100ML PREMIX 100 ML IV SCH (12:32)
--- NOTE | 2017-11-10 13:42 | NUR ---
RN NOTES: PATIENT REFUSES SECOND POTASSIUM PO PILL, EXPLAINED TO PATIENT BENEFITS AND RISKS WELL CURRENT POTASSIUM LEVELS MULTIPLE TIMES. AGREED TO TAKE FIRST PO 20 MEQ. WILL CONTINUE TO OFFER
--- NOTE | 2017-11-10 13:43 | NUR ---
RN NOTES: VERIFIED WITH OBDULIA FROM PHARMACY THAT MAGNESIUM BAGS TO BE INFUSED ARE 4. DR FRENCH ORDERED 1. DR MCGRAW ORDERED 3
--- NOTE | 2017-11-10 14:44 | NUR ---
RN NOTES; PATIENT OFFERED 2ND KDUR AGAIN, PATIENT REFUSED, BENEFITS AND RISKS EXPLAINED AT LENGTH
[2017-11-10 16:00] VITALS: BP 145/76
--- NOTE | 2017-11-10 16:41 | NUR ---
RN NOTES: PATIENT DISCHARGED TO SNF PER MD ORDERS. PATIENT EDUCATED ON EXISTCARE, ACS WELL SMOKING CESSATION EDUCATION. PATIENT VERBALIZES UNDERSTANDING. PATIENT DENIES CHEST PAIN. NONLABORED BREATHING NOTED ON ROOM AIR. VS WNL. PATIENT EDUCATED ON MEDICATIONS AND WHEN TO CALL 911. IV LINE TAKEN OUT. VALUABLES GIVEN TO PATIENT. PATIENT REFUSED TO HAVE SKIN PICTURE ON LLE, BENEFITS AND RISKS EXPLAINED. PATIENT REFUSED VACCINES, BENEFITS AND RISK EXPLAINED MULTIPLE TIMES, FAMILY AWARE OF DISCHARGE. PATIENT LEFT VIA AMBULANCE
[2017-11-10] MEDS ORDERED: NIACIN 250 MG TABLET.SA PO SCH ×2 (22:00)
[2017-11-11] MEDS ORDERED: EPOETIN ALFA (10,000 UNIT) 10,000 UNIT/ML VIAL SQ SCH (16:30)
== END 2017-11-10 16:50 | DRG 383 ==
LOC: ER 14:38 → TELE 15:55 → MED 21:08 → TELE 23:07 → MED 11-10 08:12
PROVIDERS: ADMIT Family Medicine; ATTEND Family Medicine
DX: K27.9 Peptic ulcer, site unspecified, unspecified as acute or chronic, without hemorrhage or perforation (principal); R53.2 Functional quadriplegia; N17.9 Acute kidney failure, unspecified; E44.0 Moderate protein-calorie malnutrition; D63.8 Anemia in other chronic diseases classified elsewhere; E87.1 Hypo-osmolality and hyponatremia; K21.9 Gastro-esophageal reflux disease without esophagitis; E83.42 Hypomagnesemia; E03.9 Hypothyroidism, unspecified; I25.10 Atherosclerotic heart disease of native coronary artery without angina pectoris; Z79.82 Long term (current) use of aspirin; Z98.61 Coronary angioplasty status; Z88.8 Allergy status to other drugs, medicaments and biological substances; Z79.899 Other long term (current) drug therapy; E78.5 Hyperlipidemia, unspecified; M10.9 Gout, unspecified; I10 Essential (primary) hypertension; Z96.659 Presence of unspecified artificial knee joint; Z96.649 Presence of unspecified artificial hip joint; N40.0 Benign prostatic hyperplasia without lower urinary tract symptoms; N32.81 Overactive bladder; F32.9 Major depressive disorder, single episode, unspecified; M19.90 Unspecified osteoarthritis, unspecified site; F03.90 Unspecified dementia, unspecified severity, without behavioral disturbance, psychotic disturbance, mood disturbance, and anxiety; K58.9 Irritable bowel syndrome, unspecified; Z74.01 Bed confinement status
CPT/HCPCS: 36415; 71045-TC; 80048-TC; 80053-TC; 80061-TC; 80076-TC; 82306; 82728-TC; 83540-TC; 83735-TC; 84100-TC; 84439-TC; 84443-TC; 84484-TC; 85025-TC; 85730-TC; 87081-TC; 93307-TC; A4606; J3475; J7030; Z7610

== ENCOUNTER 2017-11-29 08:16 | Outpatient (CLI) | payer MEDICARE, MEDICAID ==
[~2017-11-29 08:16] MED LIST changes: +ACID1TAB12 PO; +ASPI-1152 PO; -ASPI-1169 PO; -BISA10SU8 RC; +DOXY100T2 PO; +EPOE1VIA7 SQ; +FAMO20TA8 PO; +FERR325T23 PO; +GABA-532 PO; -HYDR-4076 PO; -LACT1CAP61 PO; +LEVO50TA8 PO; -LINA290C PO; +MAG30ORA PO; -MELO-105 PO; -MIRT15TA PO; +NIAC250T8 PO; -NIAC500T2 PO; -OXCA300T4 PO; +OXYB10TA PO; -OXYB5TAB11 PO; -POLY119P2 PO; -RANO500T3 PO; +RISP0.253 PO; +SERT100T PO; -TICA90TA PO
== END 2017-11-29 23:59 | disposition home or self-care (01) ==
LOC: MRI 08:16
PROVIDERS: ATTEND Podiatrist Foot & Ankle Surgery
DX: Z75.3 Unavailability and inaccessibility of health-care facilities (principal)

== ENCOUNTER 2018-01-29 09:13 | Inpatient (IN) | payer MEDICARE, MEDICAID ==
[~2018-01-29] VITALS: Ht 165.1 cm; Wt 65.8 kg
[~2018-01-29 09:13] MED LIST changes: -AMLO10TA2 PO; +AMLO10TA6 PO
--- NOTE | 2018-01-29 09:13 | NUR ---
BBPA FROM [facility]: LLE WOUND SENT BY GEM CUTTER FOR NON HEALING ULCER. NAD NOTED. PT AO X3, RR EVEN AND UNLABORED. VSS. PENDING MD ABCON.
--- NOTE | 2018-01-29 09:54 | NUR ---
Jeff Riavs DPM called
[2018-01-29 10:17] LABS: BASOPHILS # (AUTO) 0.2 /CMM (0.0-0.2); EOSINOPHILS % (AUTO) 5.3 % (0.0-6.0); HEMATOCRIT 38 % (39-51); HEMOGLOBIN 12.6 g/dL (13.5-17.5); LYMPHOCYTES # (AUTO) 2.3 /CMM (0.8-4.8); LYMPHOCYTES % (AUTO) 20.2 % (20.0-44.0); MEAN CORPUSCULAR HGB CONC 33 g/dl (31.0-36.0); MEAN CORPUSCULAR VOLUME 81 fL (80-96); MONOCYTES # (AUTO) 0.6 /CMM (0.1-1.30); MONOCYTES % (AUTO) 5.4 % (2.0-12.0); NEUTROPHILS # (AUTO) 7.5 /CMM (1.8-8.9); NEUTROPHILS % (AUTO) 67.1 % (43.0-81.0); PLATELET COUNT (AUTO) 350 /CMM (150-450); RDW COEFFICIENT OF VARIATION 14.6 (11.5-15.0); WHITE BLOOD COUNT (AUTO) 11.2 K/uL (4.3-11.0)
[2018-01-29 10:30] LABS: CALCIUM, SERUM 9.6 mg/dL (8.5-10.1); CARBON DIOXIDE 25 mmol/L (21-32); CHLORIDE 99 mmol/L (98-107); CREATININE 1.1 mg/dL (0.6-1.3); GLUCOSE 110 mg/dL (74-106); SODIUM SERUM 134 mmol/L (136-145); UREA NITROGEN, BLOOD 19 mg/dL (7-18)
[2018-01-29 10:31] LABS: INR 1.02 (0.85-1.15)
[2018-01-29] MEDS ORDERED: CARV12.52 PO (11:00)
[2018-01-29] MEDS ORDERED: ACET325T53 PO (11:01)
[2018-01-29] MEDS ORDERED: RISP0.5T20 PO (11:01)
[2018-01-29] MEDS ORDERED: ARGI1POW13 PO (11:01)
[2018-01-29] MEDS ORDERED: LACT1CAP65 PO (11:01)
[2018-01-29] MEDS ORDERED: CRAN3875 PO (11:01)
[2018-01-29] MEDS ORDERED: ZINC220T PO (11:01)
[2018-01-29] MEDS ORDERED: AMIN887L PO (11:01)
[2018-01-29] MEDS ORDERED: NIAC250C2 PO (11:01)
[2018-01-29] MEDS ORDERED: LACT1CAP7 PO (11:11)
[2018-01-29] MEDS ORDERED: SERT50TA PO (11:11)
[2018-01-29] MEDS ORDERED: ASCO500T9 PO (11:11)
--- NOTE | 2018-01-29 11:11 | NUR ---
VIC PAGED, ANA CR FIRE OFFICER
--- NOTE | 2018-01-29 11:18 | NUR ---
report given to adriana rios for enedelia.
--- NOTE | 2018-01-29 12:00 | NUR ---
PATIENT RECEIVED. TRANSFERED TO BED FROM WHEEL CHAIR WITH MAX ASSIST. ACCOMPANIED BY BROTHER. ORIENTED PATIENT AND FAMILY TO ROOM AND CALL LIGHT. IV FLUSHED AND PATENT. VITALS CHECKED AND RECORDED. PHOTO OF WOUND TAKEN AND HISTORY OBTAINED FROM PATIENT. PATIENT IS FARSI SPEAKING, BUT UNDERSTAND BULGARIAN. BELONGINGS ACCOUNTED FOR. BED IN A LOW POSITION, CALL LIGHT IN PATIENT REACH. WILL MONITOR.
--- NOTE | 2018-01-29 13:21 | NUR ---
CALLED DR CR TO INFORM HIM THAT THE PATIENT IS ON THE FLOOR. HE STATES THAT HE WILL SEE THE PATIENT AND PLACE ORDERS. OK TO EAT.
--- NOTE | 2018-01-29 13:40 | NUR ---
DR BOSWELL CALLED AND STATES HE IS AWARE OF THE PATIENT CONSULT. STATES HE WILL TAKE THE PATIENT TO SURGERY TOMORROW AND WILL PLACE ORDERS SOON.
--- NOTE | 2018-01-29 13:46 | NUR ---
REVIEWED PT POLST IN CHART AND CONFIRMED AT BEDSIDE. PATIENT IS DNR. FORM SIGNED BY MD. ORDER PLACED IN COMPUTER.
[2018-01-29 16:00] VITALS: BP 142/67
[2018-01-29] MEDS ORDERED: ONDANSETRON HCL/PF 4 MG/2 ML VIAL IVP PRN (16:30)
[2018-01-29] MEDS ORDERED: MAGNESIUM HYDROXIDE 30 ML UDC PO PRN (16:30)
[2018-01-29] MEDS ORDERED: ZOLPIDEM TARTRATE 5 MG TABLET PO PRN (16:30)
[2018-01-29] MEDS ORDERED: Z GUARD REMEDY 2 OZ OINT TP PRN (16:30)
[2018-01-29] MEDS ORDERED: VANCOMYCIN 1 GM in IV D5W 250 ML IV ONE (16:30)
[2018-01-29] MEDS ORDERED: MAG HYDROX/AL HYDROX/SIMETH 30 ML UDC PO PRN ×2 (16:30→18:00)
[2018-01-29] MEDS ORDERED: FEE PK DOSING 1 MIN EA MC ONE (16:38)
[2018-01-29] MEDS: ENOXAPARIN SODIUM 40 MG/0.4 ML DISP.SYRIN SQ SCH (16:43)
--- NOTE | 2018-01-29 17:33 | NUR ---
PT REFUSING LOVENOX HE STATES HE IS HAVING SURGERY TOMORROW. CONTACTED DR CR, MEDICATION AIDE STATES OK TO HOLD THIS DOSE AND TO START TOMORROW.
[2018-01-29] MEDS: VANCOMYCIN 0.75 GM in IV NS 0.9% 250 ML IV SCH (17:47)
[2018-01-29] MEDS: IV NS 0.9% 1,000 ML IV PRN (17:47)
[2018-01-29] MEDS ORDERED: NITROGLYCERIN 0.4 MG/TAB BOTTLE SL PRN (18:00)
[2018-01-29] MEDS ORDERED: ACETAMINOPHEN 325 MG TABLET PO PRN (18:00)
[2018-01-29] MEDS: PROSOURCE / PROSTAT (PYXIS) 30 ML UDC PO SCH (18:00)
[2018-01-29] MEDS ORDERED: Medication Not On Formulary EA (Arginine/Ascorbate Sod/Vite AC (Arginaid Powder) 1 EACH) PO SCH (18:00)
--- NOTE | 2018-01-29 18:06 | NUR ---
INFORMED PT THAT MEDICATIONS PROSTAT AND DITROPAN ARE ORDERED AND SCHEDULED TO BE GIVEN. ASKED PATIENT IF HE HAD THESE MEDICATIONS ALREADY THIS MORNING THEY ARE ONLY ORDERED DAILY. PATIENT STATES THAT HE HAS ALREADY HAD ALL HIS DAILY MEDICATIONS AND HAS ALREADY TAKEN THESE MEDS. WILL NON ADMIN.
[2018-01-29] MEDS: OXYBUTYNIN CHLORIDE 5 MG TABLET PO SCH (18:09)
--- NOTE | 2018-01-29 19:15 | NUR ---
MS RN OPENING NOTES: RECEIVED PT IN BED AND IS AWAKE AT THIS TIME WITH HIS BROTHER AT BEDSIDE. EXPLAINED TO THEM THAT HE IS TO BE NPO POST MIDNIGHT. PT HAS IV AND IS BEING INFUSED WITH NS AT 75ML/HR. CALL LIGHT WITHIN PT'S REACH. BED KEPT IN LOW, LOCKED POSITION, AND SIDE RAILS X 2UP. WILL CONTINUE TO MONITOR PT.
[2018-01-29 20:00] VITALS: BP 155/70
--- NOTE | 2018-01-29 20:32 | NUR ---
MS RN NOTES: PT REQUESTING FOR AMBIEN AT THIS TIME. ABLE TO ADMIN TO PT. EXPLAINED TO PT THAT RISPERDAL CANNOT BE PULLED OUT FOR ANOTHER 30 MIN AND PT UPSET. INFORMED PT THAT IT IT SCHEDULED FOR 2200 AND EARLIEST IT CAN BE GIVEN IS 2100. PT UPSET ABOUT THE SITUATION.
[2018-01-29] MEDS: risperiDONE 0.25 MG TABLET PO SCH (21:02)
[2018-01-30] MEDS: VANCOMYCIN 0.75 GM in IV NS 0.9% 250 ML IV SCH ×2 (05:03→17:40)
[2018-01-30 06:15] LABS: CALCIUM, SERUM 8.8 mg/dL (8.5-10.1); CARBON DIOXIDE 23 mmol/L (21-32); CHLORIDE 105 mmol/L (98-107); CREATININE 0.8 mg/dL (0.6-1.3); GLUCOSE 86 mg/dL (74-106); MAGNESIUM 1.4 mg/dL (1.8-2.4); PHOSPHORUS 3.3 mg/dL (2.5-4.9); POTASSIUM 3.7 mmol/L (3.5-5.1); SODIUM SERUM 137 mmol/L (136-145); UREA NITROGEN, BLOOD 15 mg/dL (7-18)
[2018-01-30 06:19] LABS: BASOPHILS % (AUTO) 0.4 % (0.0-2.0); EOSINOPHILS % (AUTO) 5.7 % (0.0-6.0); HEMATOCRIT 36 % (39-51); HEMOGLOBIN 11.9 g/dL (13.5-17.5); LYMPHOCYTES # (AUTO) 2.8 /CMM (0.8-4.8); LYMPHOCYTES % (AUTO) 28.2 % (20.0-44.0); MEAN CORPUSCULAR HGB CONC 33 g/dl (31.0-36.0); MEAN CORPUSCULAR VOLUME 82 fL (80-96); MONOCYTES # (AUTO) 0.6 /CMM (0.1-1.30); MONOCYTES % (AUTO) 6.1 % (2.0-12.0); NEUTROPHILS # (AUTO) 5.9 /CMM (1.8-8.9); NEUTROPHILS % (AUTO) 59.6 % (43.0-81.0); PLATELET COUNT (AUTO) 326 /CMM (150-450); RDW COEFFICIENT OF VARIATION 16.1 (11.5-15.0); RED BLOOD CELL COUNT(AUTO) 4.41 MIL/uL (4.5-6.0); WHITE BLOOD COUNT (AUTO) 9.9 K/uL (4.3-11.0)
[2018-01-30 06:22] LABS: CHOLESTEROL 150 mg/dL (<200); HDL CHOLESTEROL 56 mg/dL (40-60); LDL 100 mg/dL (0-99); THYROID STIMULATING HORMONE 3.522 uIU/mL (0.358-3.74); TRIGLYCERIDES 81 mg/dL (30-150)
--- NOTE | 2018-01-30 06:34 | NUR ---
MS RN CLOSING NOTES: ALL NEEDS WERE ATTENDED AND ANTICIPATED FOR. PT HAS BEEN NPO SINCE MIDNIGHT. CONSENT PLACED IN CHART. PT HAS IV AND IS BEING INFUSED WITH NS AT 75ML/HR. NO SOB NOTED. NO S/S OF DISTRESS NOTED. PT ASLEEP AT THIS TIME. CALL LIGHT WITHIN PT'S REACH. BED KEPT IN LOW, LOCKED POSITION, AND SIDE RAILS X 2UP. WILL ENDORSE TO AM NURSE FOR JEF.
--- NOTE | 2018-01-30 07:04 | NUR ---
MS RN NOTES: DR. METCALF AT BEDSIDE.
[2018-01-30] MEDS: LEVOTHYROXINE SODIUM 50 MCG TABLET PO SCH (07:30)
[2018-01-30] MEDS: PANTOPRAZOLE 40 MG TABLET.DR PO SCH (07:30)
--- NOTE | 2018-01-30 07:40 | NUR ---
MS RN OPENING NOTE PATIENT IS ALERT AND ORIENTED X3. NO PAIN AT THIS TIME. NO SOB OR DISTRESS NOTED. CALL LIGHT WITHIN REACH. SAFETY MEASURES IMPLEMENTED. ABLE TO COMMUNICATE NEEDS. IV INTACT AND PATENT NO REDNESS OR SWELLING WITH IV FLUIDS RUNNING AT THIS TIME. NPO CURRENTLY FOR SURGERY THIS MORNING FOR WOUND DEBRIDEMENT WITH DR. METCALF. CONSENTS OBTAINED AND PLACED IN CHART. WILL CONTINUE TO MONITOR THROUGHOUT SHIFT
[2018-01-30 08:00] VITALS: BP 150/78
[2018-01-30] MEDS: CARVEDILOL 12.5 MG TABLET PO SCH ×2 (08:14→16:34)
[2018-01-30] MEDS: FERROUS SULFATE (325 MG) 325 MG/TAB TABLET PO SCH ×2 (08:14→16:34)
[2018-01-30] MEDS: DOCUSATE SODIUM 100 MG CAPSULE PO SCH ×2 (08:14→16:34)
[2018-01-30] MEDS: ASPIRIN EC 81 MG TABLET.DR PO SCH (08:14)
[2018-01-30] MEDS: OXYBUTYNIN CHLORIDE 5 MG TABLET PO SCH (08:14)
[2018-01-30] MEDS: MAGNESIUM OXIDE 400 MG TABLET PO SCH (08:14)
[2018-01-30] MEDS: AMLODIPINE BESYLATE 10 MG TABLET PO SCH (08:15)
[2018-01-30] MEDS: SERTRALINE HCL 25 MG TABLET PO SCH (08:15)
[2018-01-30] MEDS: PROSOURCE / PROSTAT (PYXIS) 30 ML UDC PO SCH (08:15)
[2018-01-30] MEDS: ZINC SULFATE 220 MG CAPSULE PO SCH (08:15)
[2018-01-30] MEDS: GABAPENTIN 100 MG CAPSULE PO SCH ×2 (08:15→16:34)
--- NOTE | 2018-01-30 10:45 | NUR ---
MS RN NOTE PATIENT HEADING TO OR FOR WOUND DEBRIDEMENT ON LEFT LOWER LEG EXTREMITY. PATIENT IN STABLE CONDITION. WILL MONITOR WHEN PATIENT RETURNS
[2018-01-30] MEDS ORDERED: BUPIVACAINE 0.25% 75 MG/30 ML VIAL ONE (11:22)
[2018-01-30 13:30] VITALS: BP 177/74
--- NOTE | 2018-01-30 13:31 | NUR ---
MS RN NOTE PATIENT BACK FROM SURGERY. PATIENT IN STABLE CONDITION WITH VITALS WITHIN NORMAL LIMITS. NO PAIN AT THIS TIME. NO SOB OR DISTRESS NOTED. ABLE TO COMMUNICATE NEEDS. DRESSING INTACT. PER MD ORDERS PATIENT TO BE FULL CODE FOR 24 HRS UNTIL 01/31/18 1100 AM, THEN BACK TO DNR. NOTED AND CARRIED OUT. WILL CONTINUE TO MONITOR THROUGHOUT SHIFT
[2018-01-30] MEDS: Magnesium 1GM/D5W 100ML PREMIX 100 ML IV SCH ×2 (14:32→15:40)
[2018-01-30] MEDS: IV NS 0.9% 1,000 ML IV PRN (14:35)
[2018-01-30 16:00] VITALS: BP 175/73
--- NOTE | 2018-01-30 18:32 | NUR ---
MS RN CLOSING NOTE PATIENT RESTING COMFORTABLY AT THIS TIME. NO SOB OR DISTRESS NOTED. NO PAIN NOTED. CALL LIGHT WITHIN REACH AT ALL TIMES. SAFETY MEASURES IMPLEMENTED. ABLE TO COMMUNICATE NEEDS. ALL DUE MEDICATIONS GIVEN ORDERED. ALL NURSING CARE NEEDS ATTENDED TO NEEDED. PER MD TO NOT REMOVE OR CHANGE WOUND DRESSING, JUST KEEP CLEAN DRY AND INTACT. IV ON RIGHT AC INTACT AND PATENT WITH IV FLUIDS RUNNING AT THIS TIME TOLERATING WELL. WILL ENDORSE TO CONTROLS DESIGNER NURSE FOR JEF Addendum: 01/30/18 at 1857 by ETHAN BAILEY RN NORCO 5/325 GIVEN FOR MOUTH/JAW PAIN PAIN LEVEL 6/10. Addendum: 01/30/18 at 1857 by ETHAN BAILEY RN S/P WOUND DEBRIDEMENT ON LEFT LOWER LEG EXTREMITY
[2018-01-30] MEDS: HYDROCODONE/APAP 5/325MG 1 EACH TABLET PO PRN (18:56)
--- NOTE | 2018-01-30 19:05 | NUR ---
MS RN OPENING NOTES: RECEIVED PT IN BED AND IS AWAKE AT THIS TIME. SITTER AT BESIDE. PT IS COMPLAINING OF TOOTHACHE AND ASKING FOR PAIN MEDS. INFORMED PT THAT HE JUST RECEIVED NORCO 5 FOR PAIN MED AND TO ALLOW TIME FOR MED TO WORK. PT ON ROOM AND TOLERATING WELL. DRESSING ON L LOWER EXT IN TACT. NO ORDERS TO CHANGE. PT HAS IV AND IS BEING INFUSED WITH NS AT 75ML/HR. CALL LIGHT WITHIN PT'S REACH. BED KEPT IN LOW, LOCKED POSITION, AND SIDE RAILS X 2UP. WILL CONTINUE TO MONITOR PT.
[2018-01-30 20:00] VITALS: BP 143/59
[2018-01-30] MEDS: ENOXAPARIN SODIUM 40 MG/0.4 ML DISP.SYRIN SQ SCH (20:15)
[2018-01-30] MEDS: ACETAMINOPHEN 325 MG TABLET PO PRN (20:15)
--- NOTE | 2018-01-30 20:20 | NUR ---
MS RN NOTES: PT COMPLAINING OF TOOTHACHE. PT WAS ADMINISTERED TYLENOL 650MG PO. WILL CONTINUE TO MONITOR PT.
[2018-01-30] MEDS: risperiDONE 0.25 MG TABLET PO SCH (21:27)
[2018-01-31] MEDS: ACETAMINOPHEN 325 MG TABLET PO PRN (04:24)
--- NOTE | 2018-01-31 04:27 | NUR ---
MS RN NOTES: PT COMPLAINING OF TOOTHACHE. PT WAD ADMINISTERED TYLENOL 650MG PO.
--- NOTE | 2018-01-31 05:48 | NUR ---
MS RN NOTES: TRANSFORMER REPAIRER ON FLOOR. SHE IS AWARE THAT PT HAS A 0500 VANCO TROUGH.
[2018-01-31 05:50] VITALS: BP 140/49
[2018-01-31] MEDS: IV NS 0.9% 1,000 ML IV PRN (05:52)
[2018-01-31] MEDS: HYDROCODONE/APAP 5/325MG 1 EACH TABLET PO PRN ×4 (05:56→20:18)
[2018-01-31 06:30] LABS: CALCIUM, SERUM 8.6 mg/dL (8.5-10.1); CARBON DIOXIDE 23 mmol/L (21-32); CHLORIDE 106 mmol/L (98-107); CREATININE 0.9 mg/dL (0.6-1.3); GLUCOSE 89 mg/dL (74-106); MAGNESIUM 1.7 mg/dL (1.8-2.4); POTASSIUM 3.9 mmol/L (3.5-5.1); SODIUM SERUM 139 mmol/L (136-145); UREA NITROGEN, BLOOD 18 mg/dL (7-18)
--- NOTE | 2018-01-31 06:38 | NUR ---
MS RN NOTES: SPOKE WITH LAB REGARDING VANCO TROUGH. RESULTS ARE PENDING. SHE SAID TO TRY AGAIN IN 20 MINUTES.
--- NOTE | 2018-01-31 06:47 | NUR ---
MS RN CLOSING NOTES: ALL NEEDS WERE ATTENDED AND ANTICIPATED FOR. PT RESTING IN BED COMFORTABLY. PT ON 2LPM VIA NC FOR COMFORT MEASURES. IV REMAINS INTACT AND IS BEING INFUSED WITH NS AT 75ML/HR. CALL LIGHT WITHIN PT'S REACH. BED KEPT IN LOW, LOCKED POSITION, AND SIDE RAILS X 2UP. WILL ENDORSE TO AM NURSE FOR JEF.
[2018-01-31] MEDS: VANCOMYCIN 0.75 GM in IV NS 0.9% 250 ML IV SCH (07:07)
--- NOTE | 2018-01-31 07:09 | NUR ---
MS RN NOTES: CANDIDA MANUALLY ADMIN. ORESTES WOULD NOT SCAN [facility].
[2018-01-31 08:00] VITALS: BP 142/56
[2018-01-31] MEDS: MAGNESIUM OXIDE 400 MG TABLET PO SCH (08:43)
[2018-01-31] MEDS: DOCUSATE SODIUM 100 MG CAPSULE PO SCH ×2 (08:43→16:55)
[2018-01-31] MEDS: GABAPENTIN 100 MG CAPSULE PO SCH ×2 (08:43→16:55)
[2018-01-31] MEDS: FERROUS SULFATE (325 MG) 325 MG/TAB TABLET PO SCH ×2 (08:43→16:55)
[2018-01-31] MEDS: ASPIRIN EC 81 MG TABLET.DR PO SCH (08:44)
[2018-01-31] MEDS: ZINC SULFATE 220 MG CAPSULE PO SCH (08:44)
[2018-01-31] MEDS: PANTOPRAZOLE 40 MG TABLET.DR PO SCH (08:44)
[2018-01-31] MEDS: AMLODIPINE BESYLATE 10 MG TABLET PO SCH (08:44)
[2018-01-31] MEDS: LEVOTHYROXINE SODIUM 50 MCG TABLET PO SCH (08:44)
[2018-01-31] MEDS: PROSOURCE / PROSTAT (PYXIS) 30 ML UDC PO SCH (08:44)
[2018-01-31] MEDS: OXYBUTYNIN CHLORIDE 5 MG TABLET PO SCH (08:44)
[2018-01-31] MEDS: SERTRALINE HCL 25 MG TABLET PO SCH (08:45)
[2018-01-31] MEDS: CARVEDILOL 12.5 MG TABLET PO SCH ×2 (08:45→16:54)
--- NOTE | 2018-01-31 08:46 | NUR ---
MS RN NOTE COREG HELD DUE TO LOW PULSE. BELOW 60. PULSE RECHECKED STILL LOW AT 55. WILL CONTINUE TO MONITOR
[2018-01-31] MEDS ORDERED: EPOETIN ALFA (10,000 UNIT) 10,000 UNIT/ML VIAL SQ SCH (13:00)
[2018-01-31 16:00] VITALS: BP 133/68
--- NOTE | 2018-01-31 18:50 | NUR ---
MS RN CLOSING NOTE PATIENT IS ALERT AND ORIENTED x4. NO PAIN AT THIS TIME. NO SOB OR DISTRESS NOTED. CALL LIGHT WITHIN REACH AT ALL TIMES. SAFETY MEASURES IMPLEMENTED. ABLE TO COMMUNICATE NEEDS. ALL DUE MEDICATIONS GIVEN ORDERED. ALL NURSING CARE NEEDS ATTENDED. WOUND DRESSING INTACT PER MD TO LEAVE WOUND DRESSING IS. WILL BE DISCHARGED TOMORROW TO [facility]. IV INTACT AND PATENT NO REDNESS OR SWELLING NOTED. NO MD ORDERS TO REPLACE MAGNESIUM. WILL ENDORSE TO MOLDING LINE ASSISTANT NURSE FOR JEF
--- NOTE | 2018-01-31 19:40 | NUR ---
MS RN NOTE RECEIVED PATIENT FROM DAY SHIFT, PATIENT IS ALERT AND ORIENTEDX3, RESTING IN BED COMFORTABLY AT THIS TIME WITH HIS BROTHER AT BED SIDE. IV ON RIGHT AC IS PATENT AND INTACT, FLUID IS RUNNING. LLE DRESSING NOTED. SRX2, BED IN LOW POSITION, CALL LIGHT WITHIN REACH, WILL CONTINUE TO MONITOR PATIENT.
[2018-01-31 20:12] VITALS: BP 154/71
[2018-01-31] MEDS: ENOXAPARIN SODIUM 40 MG/0.4 ML DISP.SYRIN SQ SCH (20:18)
--- NOTE | 2018-01-31 20:20 | NUR ---
MS RN NOTE PATIENT COMPLAINS OF PAIN ON LEFT LEG, NORCO 5-325MG PO GIVEN. WILL REASSESS EFFECTIVENESS.
[2018-01-31] MEDS: risperiDONE 0.25 MG TABLET PO SCH (21:30)
[2018-02-01] MEDS ORDERED: VANCOMYCIN 0.75 GM in IV D5W 250 ML IV SCH ×2
[2018-02-01] MEDS: IV NS 0.9% 1,000 ML IV PRN (06:48)
[2018-02-01] MEDS: HYDROCODONE/APAP 5/325MG 1 EACH TABLET PO PRN (06:52)
--- NOTE | 2018-02-01 06:54 | NUR ---
MS RN NOTE PATIENT IS RESTING IN BED COMFORTABLY, NO S/S OF RESPIRATORY DISTRESS. HE COMPLAINED OF PAIN ON LLE. NORCO 5-325MG PO GIVEN. IV ON RIGHT AC IS PATENT AND INTACT. ALL NEEDS MET, MORNING CARE RENDERED. WILL ENDORSE TO DAY SHIFT NURSE FOR JEF.
[2018-02-01 07:00] LABS: CALCIUM, SERUM 8.8 mg/dL (8.5-10.1); CARBON DIOXIDE 23 mmol/L (21-32); CHLORIDE 102 mmol/L (98-107); GLUCOSE 83 mg/dL (74-106); POTASSIUM 3.9 mmol/L (3.5-5.1); SODIUM SERUM 135 mmol/L (136-145); UREA NITROGEN, BLOOD 18 mg/dL (7-18)
--- NOTE | 2018-02-01 07:30 | NUR ---
RN INITIAL NOTES: PATIENT RESTING IN BED. NONLABORED BREATHING NOTED ON ROOM AIR. DENYING PAIN AT THE MOMENT. PATIENT AOX2-3. IV SITE 18 PATENT AND INTACT. BED IN LOWEST LOCKED POSITION. CALL LIGHT WITHIN REACH.
[2018-02-01] MEDS: LEVOTHYROXINE SODIUM 50 MCG TABLET PO SCH (07:50)
[2018-02-01] MEDS: PANTOPRAZOLE 40 MG TABLET.DR PO SCH (07:50)
[2018-02-01 08:00] VITALS: BP 149/68
[2018-02-01 09:00] VITALS: BP 129/58
[2018-02-01] MEDS: CARVEDILOL 12.5 MG TABLET PO SCH (09:00)
[2018-02-01] MEDS: AMLODIPINE BESYLATE 10 MG TABLET PO SCH (09:00)
[2018-02-01] MEDS: DOCUSATE SODIUM 100 MG CAPSULE PO SCH (09:00)
--- NOTE | 2018-02-01 09:29 | NUR ---
RN NOTES: COLACE HELD DUE TO PATIENT HAVING A LARGE BOWEL MOVEMENT. PATIENT REFUSING LAXATIVES
[2018-02-01] MEDS: ASPIRIN EC 81 MG TABLET.DR PO SCH (09:36)
[2018-02-01] MEDS: MAGNESIUM OXIDE 400 MG TABLET PO SCH (09:37)
[2018-02-01] MEDS: GABAPENTIN 100 MG CAPSULE PO SCH (09:38)
[2018-02-01] MEDS: SERTRALINE HCL 25 MG TABLET PO SCH (09:39)
[2018-02-01] MEDS: FERROUS SULFATE (325 MG) 325 MG/TAB TABLET PO SCH (09:39)
[2018-02-01] MEDS: ZINC SULFATE 220 MG CAPSULE PO SCH (09:39)
[2018-02-01] MEDS: OXYBUTYNIN CHLORIDE 5 MG TABLET PO SCH (09:40)
[2018-02-01] MEDS: PROSOURCE / PROSTAT (PYXIS) 30 ML UDC PO SCH (09:43)
--- NOTE | 2018-02-01 11:32 | NUR ---
RN CLOSING NOTES PATIENT DISCHARGED TO [facility]. PATIENT STABLE. DENYING PAIN AT THE MOMENT. DRESSING INTACT. NO BLEEDING NOR DRAINAGE NOTED. IV SITE TAKEN OUT. ALL BELONGINGS GIVEN TO PATIENT. FAMILY NOTIFIED OF PATIENT'S DISCHARGE. PATIENT EDUCATED ON EXISTCARE WELL MEDICATIONS. REPORT GIVEN TO RIZWANA AT FACILITY AND BED CONFIRMED. KEFLEX PRECRIPTION ATTACHED. PATIENT LEFT STABLE WITH AMBULANCE
== END 2018-02-01 11:30 | DRG 605 ==
LOC: ER 09:15 → MED 11:21
PROVIDERS: ADMIT Hospitalist; ATTEND Hospitalist
PROC: 0JBP0ZX Excision of Left Lower Leg Subcutaneous Tissue and Fascia, Open Approach, Diagnostic (ICD-10-PCS; principal; 2018-01-30 11:00)
DX: S81.802A Unspecified open wound, left lower leg, initial encounter (principal); D63.8 Anemia in other chronic diseases classified elsewhere; F03.90 Unspecified dementia, unspecified severity, without behavioral disturbance, psychotic disturbance, mood disturbance, and anxiety; E83.42 Hypomagnesemia; D72.829 Elevated white blood cell count, unspecified; I12.9 Hypertensive chronic kidney disease with stage 1 through stage 4 chronic kidney disease, or unspecified chronic kidney disease; X58.XXXA Exposure to other specified factors, initial encounter; Y92.009 Unspecified place in unspecified non-institutional (private) residence as the place of occurrence of the external cause; N18.9 Chronic kidney disease, unspecified; Z79.899 Other long term (current) drug therapy; I25.10 Atherosclerotic heart disease of native coronary artery without angina pectoris; Z99.3 Dependence on wheelchair; Z96.659 Presence of unspecified artificial knee joint; Z98.61 Coronary angioplasty status; Z79.82 Long term (current) use of aspirin; E78.5 Hyperlipidemia, unspecified; E03.9 Hypothyroidism, unspecified; N32.81 Overactive bladder; M10.9 Gout, unspecified; K58.0 Irritable bowel syndrome with diarrhea; F31.9 Bipolar disorder, unspecified; Z96.641 Presence of right artificial hip joint; Z90.49 Acquired absence of other specified parts of digestive tract; R26.81 Unsteadiness on feet; R22.42 Localized swelling, mass and lump, left lower limb; L08.9 Local infection of the skin and subcutaneous tissue, unspecified
CPT/HCPCS: 36415; 71045-TC; 80048-TC; 80061-TC; 80202-TC; 83735-TC; 84100-TC; 84443-TC; 85025-TC; 85730-TC; 87081-TC; 88305-TC; 97110-TC; 97530-TC; A4606; A6209; A6402; J0885; J1650; J2704; J3370; J3475; J3490; J7030; J7050; J7060; Z7610

== ENCOUNTER 2018-11-20 11:00 | Outpatient (CLI) | payer MEDICARE, MEDICAID ==
[~2018-11-20 11:00] MED LIST changes: +ACET325T53 PO; -ACID1TAB12 PO; +AMIN887L PO; -AMLO10TA6 PO; +AMLO10TA7 PO; +ARGI1POW13 PO; -ASCO-340 PO; +ASCO500T9 PO; +CARV12.52 PO; -CARV25TA PO; +CRAN3875 PO; -DOXY100T2 PO; +HYDR-4384 PO; -HYDR-552 PO; +LACT1CAP65 PO; +LACT1CAP7 PO; +NIAC250C2 PO; -NIAC250T8 PO; -RISP0.253 PO; +RISP0.5T20 PO; -SERT100T PO; +SERT50TA PO; -TAMS-12 PO; +ZINC220T PO
== END 2018-11-20 23:59 | disposition home or self-care (01) ==
LOC: WOU 11:00
PROVIDERS: ATTEND Podiatrist Foot & Ankle Surgery
DX: I70.242 Atherosclerosis of native arteries of left leg with ulceration of calf (principal); L97.823 Non-pressure chronic ulcer of other part of left lower leg with necrosis of muscle; M79.662 Pain in left lower leg; R26.2 Difficulty in walking, not elsewhere classified; M62.59 Muscle wasting and atrophy, not elsewhere classified, multiple sites; Z79.82 Long term (current) use of aspirin; Z79.899 Other long term (current) drug therapy; I10 Essential (primary) hypertension
CPT/HCPCS: 11043; A6402

== ENCOUNTER 2019-09-24 13:55 | Inpatient (IN) | payer MEDICARE, MEDICAID ==
[~2019-09-24] VITALS: Ht 170.2 cm; Wt 54.0 kg
[~2019-09-24 13:55] MED LIST changes: -MAGN400T6 PO; +MAGN400T8 PO; -OXYB10TA PO; +OXYB10TA2 PO; -ZINC220T PO; +ZINC220T4 PO
--- NOTE | 2019-09-24 13:59 | NUR ---
sandrine, from snf, altered and fever, PT TO BED 5, AWAKE, PT ON MONITOR, -SOB, NAD NOTED, PENDING MD BACON
[2019-09-24] MEDS ORDERED: MEGE400O4 PO (14:14)
[2019-09-24] MEDS ORDERED: POLY17PO4 PO (14:14)
[2019-09-24] MEDS ORDERED: SENN-168 PO (14:14)
[2019-09-24] MEDS ORDERED: HEPA50008 SQ (14:14)
[2019-09-24] MEDS ORDERED: RISP0.2515 PO (14:14)
[2019-09-24] MEDS ORDERED: DIVA125C2 PO (14:14)
[2019-09-24] MEDS ORDERED: CLON0.2T PO (14:14)
[2019-09-24] MEDS ORDERED: LIDO30AD10 TP (14:14)
[2019-09-24] MEDS ORDERED: TRAM50TA2 PO (14:14)
[2019-09-24] MEDS ORDERED: ALLO100T PO (14:14)
[2019-09-24] MEDS ORDERED: BISA10SU11 RC (14:14)
[2019-09-24] MEDS ORDERED: CITA10TA17 PO (14:14)
[2019-09-24] MEDS ORDERED: hydrALAZINE HCL IV 20 MG VIAL ONE ×2 (14:42→15:53)
[2019-09-24 15:00] LABS: BASOPHILS # (AUTO) 0.1 /CMM (0.0-0.2); BASOPHILS % (AUTO) 0.9 % (0.0-2.0); EOSINOPHILS % (AUTO) 2.5 % (0.0-6.0); HEMATOCRIT 38 % (39-51); HEMOGLOBIN 12.1 g/dL (13.5-17.5); LYMPHOCYTES # (AUTO) 2.6 /CMM (0.8-4.8); MEAN CORPUSCULAR HGB CONC 32 g/dl (31.0-36.0); MEAN CORPUSCULAR VOLUME 84 fL (80-96); MONOCYTES # (AUTO) 0.7 /CMM (0.1-1.30); MONOCYTES % (AUTO) 6.1 % (2.0-12.0); NEUTROPHILS # (AUTO) 8.2 /CMM (1.8-8.9); NEUTROPHILS % (AUTO) 68.5 % (43.0-81.0); PLATELET COUNT (AUTO) 351 /CMM (150-450); RED BLOOD CELL COUNT(AUTO) 4.51 MIL/uL (4.5-6.0)
[2019-09-24] MEDS ORDERED: IV NS 0.9% 1,000 ML BAG IV ONE (15:00)
[2019-09-24] MEDS ORDERED: hydrALAZINE HCL IV 20 MG VIAL IV ONE ×2 (15:00→16:00)
[2019-09-24 15:02] LABS: APPEARANCE,URINE Clear (CLEAR); BILIRUBIN,URINE Negative (NEGATIVE); BLOOD, URINE Small Ery/uL (NEGATIVE); COLOR,URINE Light yellow (YELLOW); KETONES,URINE Negative (NEGATIVE); LEUKOCYTE ESTERASE ,URINE Negative (NEGATIVE); NITRITE, URINE Negative (NEGATIVE); PH,URINE 7.5 (5.0-8.0); PROTEIN,URINE 100 mg/dl (NEGATIVE); UGLUCOSE Negative (NEGATIVE); UROBILINOGEN,URINE 0.2 EU/dL (0.2)
[2019-09-24 15:08] LABS: CARBON DIOXIDE 20 mmol/L (21-32); CHLORIDE 105 mmol/L (98-107); CREATININE 1.1 mg/dL (0.6-1.3); GLUCOSE 101 mg/dL (74-106); POTASSIUM 3.9 mmol/L (3.5-5.1); SODIUM SERUM 138 mmol/L (136-145); UREA NITROGEN, BLOOD 31 mg/dL (7-18)
[2019-09-24 15:14] LABS: ALANINE AMINOTRANSFERASE 14 U/L (12-78); ALBUMIN 2.2 g/dL (3.4-5.0); ALKALINE PHOSPHATASE 74 U/L (46-116); ASPARTATE AMINOTRANSFERASE 17 U/L (15-37); BILIRUBIN,DIRECT 0.1 mg/dL (0.0-0.2); BILIRUBIN,TOTAL 0.2 mg/dL (0.2-1.0); TOTAL PROTEIN, SERUM 7.8 g/dL (6.4-8.2)
[2019-09-24 15:18] LABS: BACTERIA,URINE Few /HPF (None Seen); SQUAMOUS EPITHELIAL CELL,UR Few /HPF (None Seen); WBC,URINE 0-2 /HPF (0-3)
--- NOTE | 2019-09-24 15:18 | NUR ---
CALLED COURTROOM CLERK FOR TELE BED.
[2019-09-24] MEDS ORDERED: PIPERACILLIN /TAZOBACTAM 3.375 G in IV D5W 50 ML IV ONE (15:30)
--- NOTE | 2019-09-24 15:45 | NUR ---
BED ASSIGN 309-1
[2019-09-24] MEDS ORDERED: LABETALOL HCL IV 100MG VIAL ONE (16:18)
[2019-09-24 16:30] VITALS: BP 208/101
[2019-09-24] MEDS ORDERED: LABETALOL HCL IV 100MG VIAL IV PRN (16:30)
--- NOTE | 2019-09-24 16:53 | NUR ---
bedside report given to gabriel tucker for enedelia, pt transporeted 3rd floor
--- NOTE | 2019-09-24 16:55 | NUR ---
WAXED BAG MACHINE OPERATOR NOTES RECEIVED PT FROM E.R. STAFF [facility]IA [facility], ASSISTED PT TO BED, MADE COMFORTABLE, PT NON VERBAL, UNABLE TO OPEN EYES, NOT IN DISTRESS, ON O2 AT 2LPM VIA NASAL CANULA, O2 SAT OF 100%, SON AND BROTHER AT BEDSIDE, PLAN OF CARE DISCUSSED, VERBALIZED UNDERSTANDING, KEPT PT COMFORTABLE, AWAITING ADMITTING ORDERS FROM DR. ROBERTO.
[2019-09-24] MEDS ORDERED: TRAMADOL HCL 50 MG TABLET PO PRN (17:00)
[2019-09-24] MEDS ORDERED: SENNOSIDES 8.6 MG TABLET PO PRN (17:00)
[2019-09-24] MEDS: DOCUSATE SODIUM 100 MG CAPSULE PO SCH (17:00)
[2019-09-24] MEDS ORDERED: BISACODYL SUPP (10 MG) 10 MG/SUPP.RECT SUPP.RECT RC PRN (17:00)
[2019-09-24] MEDS: MEGESTROL ACETATE SUSP 400 MG/10 ML UDC PO SCH (17:00)
[2019-09-24] MEDS ORDERED: CLONIDINE HCL 0.2 MG TABLET PO PRN (17:00)
[2019-09-24] MEDS: DIVALPROEX SODIUM 125 MG CAP.SPRINK PO SCH (17:00)
[2019-09-24] MEDS: GABAPENTIN 100 MG CAPSULE PO SCH (17:00)
[2019-09-24] MEDS ORDERED: IV NS 0.9% 1,000 ML IV PRN (17:04)
[2019-09-24] MEDS ORDERED: HYDROCODONE/APAP 5/325MG 1 EACH TABLET PO PRN (17:30)
[2019-09-24] MEDS ORDERED: ACETAMINOPHEN 325 MG TABLET PO PRN (17:30)
[2019-09-24] MEDS ORDERED: MORPHINE SULFATE INJ 2 MG/ML DISP.SYRIN IV PRN (17:30)
[2019-09-24] MEDS ORDERED: ZOLPIDEM TARTRATE 5 MG TABLET PO PRN (17:30)
[2019-09-24] MEDS ORDERED: ONDANSETRON HCL/PF 4 MG/2 ML VIAL IVP PRN (17:30)
[2019-09-24] MEDS ORDERED: Z GUARD REMEDY 2 OZ OINT TP PRN (17:30)
[2019-09-24] MEDS ORDERED: MAG HYDROX/AL HYDROX/SIMETH 30 ML UDC PO PRN (17:30)
[2019-09-24] MEDS ORDERED: MAGNESIUM HYDROXIDE 30 ML UDC PO PRN (17:30)
--- NOTE | 2019-09-24 17:53 | NUR ---
STAMP PAD MAKER NOTES PM MEDS NON ADMIN, PT UNABLE TO OPEN HIS EYES OR MOUTH, UNABLE TO FOLLOW DIRECTIONS, RISK FOR ASPIRATION.
[2019-09-24] MEDS: OXYBUTYNIN CHLORIDE ER 5 MG TAB PO SCH (18:00)
[2019-09-24] MEDS ORDERED: CLONIDINE HCL 0.1 MG TABLET PO PRN (18:30)
[2019-09-24 18:32] VITALS: BP 176/90
[2019-09-24 18:47] VITALS: BP 164/85
--- NOTE | 2019-09-24 19:00 | NUR ---
CRIMINAL JUSTICE INSTRUCTOR NOTES PT IN BED, RESTING, NOT IN DISTRESS, IV FLUIDS INFUSING WELL, UNABLE TO ADMINISTER ALL PO MEDS, PT UNABLE TO FOLLOW DIRECTIONS, RISK FOR ASPIRATION, MONITORED BLOOD PRESSURE, SKIN ASSESSMENT DONE, KEPT WARM AND COMFORTABLE IN BED.
--- NOTE | 2019-09-24 19:30 | NUR ---
RN OPENING NOTES 1929 RECEIVED PATIENT IN BED. PATIENT IS NON VERBAL, NOT ABLE TO OPEN EYES. NOT IN ANY DISTRESS, NO SHORTNESS OF BREATH NOTED. ON O2 AT 2LPM VIA NASAL CANNULA, SATURATION IS WNL. TELE READING: SR 80. SAFETY PRECAUTIONS IMPLEMENTED; CALL LIGHT WITHIN REACH, BED LOWEST POSITION, BED LOCKED, BILATERAL UPPER SIDE RAILS UP. WILL CONTINUE TO MONITOR.
[2019-09-24 20:00] VITALS: BP 163/77
[2019-09-24] MEDS ORDERED: ENOXAPARIN SODIUM 40 MG/0.4 ML DISP.SYRIN SQ SCH (21:00)
[2019-09-24] MEDS ORDERED: LIDOCAINE 5% (PATCH) 1 EA PATCH TP SCH (21:00)
[2019-09-24] MEDS: hydrALAZINE HCL IV 20 MG VIAL IV PRN (21:07)
[2019-09-24] MEDS ORDERED: risperiDONE 0.25 MG TABLET PO SCH (22:00)
--- NOTE | 2019-09-24 22:34 | NUR ---
RN NOTES PATIENT UNABLE TO FOLLOW DIRECTIONS TO TAKE PO MEDS, RISK FOR ASPIRATION. WILL CONTINUE TO MONITOR.
[2019-09-25] VITALS (10 sets, daily range): BP systolic 152–194; BP diastolic 70–90
[2019-09-25] MEDS: hydrALAZINE HCL IV 20 MG VIAL IV PRN ×2 (04:57→08:40)
--- NOTE | 2019-09-25 06:55 | NUR ---
RN CLOSING NOTES PATIENT IN BED, RESTING COMFORTABLY, NO RESPIRATORY DISTRESS, NO SHORTNESS OF BREATH NOTED. IV SITES REMAINS INTACT, PATENT, NO INFECTION/INFILTRATION NOTED, IVF INFUSING. TELE READING SR 62. PATIENT REMAINS UNABLE TO FOLLOW DIRECTIONS, THUS CAUSING RISK FOR ASPIRATION. ALL NEEDS MET AND DONE. PATIENT KEPT CLEAN, DRY AND COMFORTABLE. PATIENT TURNED EVERY 2 HOURS. SAFETY PRECAUTIONS IMPLEMENTED; CALL LIGHT WITHIN REACH, BED LOWEST POSITION, BED LOCKED, BILATERAL UPPER SIDE RAILS UP. WILL CONTINUE TO MONITOR AND THEN WILL ENDORSE TO DAY SHIFT NURSE FOR CONTINUITY OF CARE.
[2019-09-25 07:00] LABS: BASOPHILS # (AUTO) 0.1 /CMM (0.0-0.2); EOSINOPHILS % (AUTO) 0.5 % (0.0-6.0); HEMATOCRIT 42 % (39-51); HEMOGLOBIN 13.3 g/dL (13.5-17.5); LYMPHOCYTES # (AUTO) 1.7 /CMM (0.8-4.8); LYMPHOCYTES % (AUTO) 16.9 % (20.0-44.0); MEAN CORPUSCULAR HGB CONC 32 g/dl (31.0-36.0); MEAN CORPUSCULAR VOLUME 85 fL (80-96); MONOCYTES # (AUTO) 0.8 /CMM (0.1-1.30); MONOCYTES % (AUTO) 7.5 % (2.0-12.0); NEUTROPHILS # (AUTO) 7.5 /CMM (1.8-8.9); NEUTROPHILS % (AUTO) 74.1 % (43.0-81.0); PLATELET COUNT (AUTO) 372 /CMM (150-450); RED BLOOD CELL COUNT(AUTO) 4.91 MIL/uL (4.5-6.0); WHITE BLOOD COUNT (AUTO) 10.1 K/uL (4.3-11.0)
--- NOTE | 2019-09-25 07:15 | NUR ---
EXTRUSION OPERATOR OPENING NOTE RECEIVED REPORT FROM [facility] SHIFT NURSE. PT AWAKE IN BED, ALERT AND ORIENTED X 1, ON 02 VIA NC 2L/MIN, SATURATING WELL, RESPIRATIONS EVEN AND UNLABORED, NO SIGNS OF RESPIRATORY DISTRESS NOTED. ON TELE MONITOR SINUS RHYTHM, HR 70. IV SITE ON RIGHT FOREARM G20 INTACT, PATENT. IV SITE ON LEFT HAND G20 INTACT, PATENT, NS INFUSING 50CC/HR, NO SIGNS OF INFILTRATION NOTED. BED IN LOW POSITION, LOCKED, CALL LIGHT WITHIN REACH.
[2019-09-25 07:30] LABS: THYROID STIMULATING HORMONE 8.504 uIU/mL (0.358-3.74)
[2019-09-25] MEDS ORDERED: FAMOTIDINE (20 MG) 20 MG TABLET PO SCH (07:30)
[2019-09-25] MEDS ORDERED: LEVOTHYROXINE SODIUM 75 MCG TABLET PO SCH (07:30)
[2019-09-25 07:41] LABS: ALBUMIN 2.2 g/dL (3.4-5.0); BILIRUBIN,TOTAL 0.4 mg/dL (0.2-1.0); CALCIUM, SERUM 8.9 mg/dL (8.5-10.1); CREATININE 1.3 mg/dL (0.6-1.3); MAGNESIUM 1.9 mg/dL (1.8-2.4); PHOSPHORUS 3.9 mg/dL (2.5-4.9); POTASSIUM 4.1 mmol/L (3.5-5.1); TOTAL PROTEIN, SERUM 7.8 g/dL (6.4-8.2)
--- NOTE | 2019-09-25 07:55 | NUR ---
PT UNABLE TO FOLLOW DIRECTIONS, HELD SCHEDULED 07:30 MEDICATIONS. SPOKE WITH JOHNNIE ROBERTO, NOTIFIED HIM OF PT'S CONDITION. SWALLOW EVAL ORDERED.
[2019-09-25] MEDS ORDERED: ZINC SULFATE 220 MG CAPSULE PO SCH (09:00)
[2019-09-25] MEDS ORDERED: ACIDOPHILUS/BULGARICUS 1 EACH TAB.CHEW PO SCH (09:00)
[2019-09-25] MEDS ORDERED: MAGNESIUM OXIDE 400 MG TABLET PO SCH (09:00)
[2019-09-25] MEDS ORDERED: CITALOPRAM HYDROBROMIDE 10 MG TABLET PO SCH (09:00)
[2019-09-25] MEDS ORDERED: ALLOPURINOL 100 MG TABLET PO SCH (09:00)
[2019-09-25] MEDS ORDERED: MULTIVIT W/MINERALS 1 TAB TABLET PO SCH (09:00)
[2019-09-25] MEDS ORDERED: ASPIRIN EC 81 MG TABLET.DR PO SCH (09:00)
[2019-09-25] MEDS ORDERED: CARVEDILOL 12.5 MG TABLET PO SCH (09:00)
[2019-09-25] MEDS ORDERED: ASCORBIC ACID 500 MG TABLET PO SCH (09:00)
[2019-09-25] MEDS ORDERED: PROSOURCE / PROSTAT (PYXIS) 30 ML UDC PO SCH (09:00)
[2019-09-25] MEDS ORDERED: POLYETHYLENE GLYCOL 3350 17 GM POWD.PACK PO SCH (09:00)
[2019-09-25] MEDS: MEGESTROL ACETATE SUSP 400 MG/10 ML UDC PO SCH ×2 (10:24→16:05)
[2019-09-25] MEDS: DOCUSATE SODIUM 100 MG CAPSULE PO SCH ×2 (10:25→16:05)
[2019-09-25] MEDS: OXYBUTYNIN CHLORIDE ER 5 MG TAB PO SCH (10:25)
[2019-09-25] MEDS: DIVALPROEX SODIUM 125 MG CAP.SPRINK PO SCH ×3 (10:25→16:05)
[2019-09-25] MEDS: GABAPENTIN 100 MG CAPSULE PO SCH ×2 (10:26→16:05)
--- NOTE | 2019-09-25 12:15 | NUR ---
RECEIVED PHONE CALL FROM EMERITA FROM [facility] REQUESTING TO FAX HISTORY AND PHYSICAL, MED LIST, AND LABS TO [phone] ALL INFORMATION FAXED
[2019-09-25] MEDS ORDERED: LORAZEPAM INJ 2 MG/ML VIAL IV PRN (12:30)
[2019-09-25] MEDS ORDERED: MORPHINE SULFATE/PF 30 MG in IV NS 0.9% 27 ML, PCA TOTAL VOLUME 1 BAG IV PRN ×3 (13:00)
--- NOTE | 2019-09-25 13:14 | NUR ---
DUE TO ORDER TO STOP ALL LABS, X-RAYS, MEDICATIONS, AND TREATMENTS- HELD SCHEDULED 1300 MEDICATION.
--- NOTE | 2019-09-25 13:30 | NUR ---
PT UNDER GIP HOSPICE CARE WITH [facility] FAMILY BY BEDSIDE
[2019-09-25] MEDS ORDERED: EPOETIN ALFA (10,000 UNIT) 10,000 UNIT/ML VIAL SQ SCH (15:00)
[2019-09-25] MEDS ORDERED: KEY,NONCONTROL,TO KEEP IN PYXI 1 EA MC ONE ×2 (15:36→16:02)
[2019-09-25] MEDS ORDERED: FERROUS SULFATE (325 MG) 325 MG/TAB TABLET PO SCH (17:00)
--- NOTE | 2019-09-25 18:14 | NUR ---
MS RN CLOSING NOTE PT ASLEEP IN BED, ON 02 VIA NC 1L/MIN ORDERED BY DR. JOSE J SHAW, IV FLUIDS DISCONTINUED PER DR. JOSE J SHAW. PT IS SATURATING WELL, RESPIRATIONS EVEN AND UNLABORED, NO SIGNS OF RESPIRATORY DISTRESS NOTED. IV SITE ON RIGHT FOREARM G20 INTACT, PATENT, MORPHINE DRIP INFUSING AT 2MG/HR, NO SIGNS OF INFILTRATION NOTED. IV SITE ON LEFT HAND G20 INTACT, PATENT, WITH HEP LOCK IN PLACE. 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 PROVIDED SAFETY AND COMFORT TO PT THROUGHOUT SHIFT, FAMILY BY BEDSIDE.
[2019-09-26] MEDS ORDERED: SILVER SULFADIAZINE CREAM 25 GM TUBE TP SCH (09:00)
== END 2019-09-25 18:40 | disposition hospice, inpatient (51) | DRG 304 ==
LOC: ER 14:03 → TELE 16:06 → MED 09-25 07:38
PROVIDERS: ADMIT Nurse Practitioner Acute Care; ATTEND Nurse Practitioner Acute Care
DX: I16.1 Hypertensive emergency (principal); G93.41 Metabolic encephalopathy; E43 Unspecified severe protein-calorie malnutrition; D68.59 Other primary thrombophilia; L97.829 Non-pressure chronic ulcer of other part of left lower leg with unspecified severity; I12.9 Hypertensive chronic kidney disease with stage 1 through stage 4 chronic kidney disease, or unspecified chronic kidney disease; F03.90 Unspecified dementia, unspecified severity, without behavioral disturbance, psychotic disturbance, mood disturbance, and anxiety; K21.9 Gastro-esophageal reflux disease without esophagitis; N40.0 Benign prostatic hyperplasia without lower urinary tract symptoms; M19.90 Unspecified osteoarthritis, unspecified site; F31.9 Bipolar disorder, unspecified; D64.9 Anemia, unspecified; Z98.61 Coronary angioplasty status; Z66 Do not resuscitate; N18.9 Chronic kidney disease, unspecified; E78.5 Hyperlipidemia, unspecified; E03.9 Hypothyroidism, unspecified; Z96.641 Presence of right artificial hip joint; Z96.659 Presence of unspecified artificial knee joint; D72.829 Elevated white blood cell count, unspecified; R79.89 Other specified abnormal findings of blood chemistry; D63.1 Anemia in chronic kidney disease; I70.248 Atherosclerosis of native arteries of left leg with ulceration of other part of lower leg; M62.562 Muscle wasting and atrophy, not elsewhere classified, left lower leg; M62.561 Muscle wasting and atrophy, not elsewhere classified, right lower leg
CPT/HCPCS: 36415; 70450-TC; 71045-TC; 80048-TC; 80053-TC; 80061-TC; 80076-TC; 81000-TC; 83540-TC; 83605-TC; 83735-TC; 84100-TC; 84439-TC; 84443-TC; 84484-TC; 85025-TC; 85730-TC; 87040-TC; 87081-TC; 87086-TC; 92611-TC; 97530-TC; A4216; G0378; J0360; J0885; J1650; J2274; J2543; J3490; J7030; J7060

== ENCOUNTER 2019-09-25 18:44 | Inpatient (IN) | payer OTHER ==
[~2019-09-25] VITALS: Ht 152.4 cm; Wt 54.4 kg
[~2019-09-25 18:44] MED LIST changes: -ACET325T53 PO; +ALLO100T PO; -AMLO10TA7 PO; -ARGI1POW13 PO; +BISA10SU11 RC; +CITA10TA17 PO; +CLON0.2T PO; -CRAN3875 PO; -CRAN425C6 PO; +DIVA125C2 PO; -FEBU80TA PO; -FERR325T23 PO; +HEPA50008 SQ; -LACT1CAP65 PO; +LIDO30AD10 TP; +MEGE400O4 PO; -NIAC250C2 PO; -NITR0.4T48 SL; -ONDA4TAB5 PO; -OXYB10TA2 PO; +OXYB10TA30 PO; +POLY17PO4 PO; +RISP0.2515 PO; -RISP0.5T20 PO; +SENN-168 PO; -SERT50TA PO; +TRAM50TA2 PO
[2019-09-25 20:00] VITALS: BP 174/77
--- NOTE | 2019-09-25 20:00 | NUR ---
HOSPICE/RN NOTES RECEIVED PATIENT FROM [facility] AND ADMITTED TO HOSPICE. PATIENT ADMITTING MD DR. SHAW WITH [facility] N[facility]SE WITH DX OF CAD.PATIENT SON AT BEDSIDE PER MD SHAW PATIENT WITH ORDER FOR MORPHINE DRIP AT 2MG/HR AND TO INCREASE TO 4MG IF HR EXCEEDS 18 AND MAXIMUM OF 20MG/, PATIENT ON DNR/DNI STATUS WITH MED ORDER RECONCILED. SKIN WITH SOME ISSUES ON LLE WOUND, WITH IV SITE, IV ON RIGHT HAND PATENT. ON NPO STATUS. WILL ENDORSE TO AM RN FOR JEF.
[2019-09-25] MEDS: TRAMADOL HCL 50 MG TABLET PO SCH (22:00)
[2019-09-25] MEDS ORDERED: ZOLPIDEM TARTRATE 10 MG TABLET PO PRN (22:00)
[2019-09-25] MEDS ORDERED: hydrALAZINE HCL IV 20 MG VIAL IV PRN (22:30)
[2019-09-26] MEDS: TRAMADOL HCL 50 MG TABLET PO SCH (05:40)
--- NOTE | 2019-09-26 07:07 | NUR ---
HOSPICE/RN NOTES PATIENT RESTING IN BED, FRAIL LOOKING, CAN HAVE LITTLE MOVEMENT, ON OXYGEN VIA NC. SKIN WARM TO TOUCH. KEPT WARM. BED LOCKED, CALL LIGHTS WITHIN REACH, WILL MONITOR. WILL ENDORSE TO AM RN FOR JEF.
[2019-09-26] MEDS ORDERED: KEY,NONCONTROL,TO KEEP IN PYXI 1 EA MC ONE ×6 (07:18→21:39)
--- NOTE | 2019-09-26 07:29 | NUR ---
DUPLEX TRIMMER NOTES PHARMACY MADE AWARE PATIENT MORPHINE MEDICATION HEEL WHEELER PUMP NEED NEW BAG. RESPIRATIONS AT 18 WITH NO NEED TO INCREASE. PER PHARMACY WILL SEND FABIAN.
--- NOTE | 2019-09-26 07:30 | NUR ---
RECEIVED PT. IN AM.FAMILY MEMBER AT BEDSIDE.OPENS EYES,NON COMMUNICATIVE,APPEARS COMFORTABLE.BP ELEVATED.
[2019-09-26 08:00] VITALS: BP 194/94
--- NOTE | 2019-09-26 08:00 | NUR ---
ON MORPHINE PUMP ON HOSPICE NOW.
--- NOTE | 2019-09-26 08:05 | NUR ---
MORPHINE AT 2 MG PER HR.
[2019-09-26] MEDS ORDERED: ZINC SULFATE 220 MG CAPSULE PO SCH (09:00)
[2019-09-26] MEDS: MORPHINE SULFATE/PF 30 MG in IV NS 0.9% 27 ML IV PRN ×4 (09:23→15:41)
--- NOTE | 2019-09-26 09:30 | NUR ---
GIVEN APRESOLINE FOR HIGH BP.
--- NOTE | 2019-09-26 10:30 | NUR ---
SPENCER GAMING MANAGER IN REQUESTING PAIN MED AND ATIVAN FOR PT. RR 24.
--- NOTE | 2019-09-26 11:20 | NUR ---
MORPHINE NOW AT 4 MG PER HR.
[2019-09-26] MEDS: Z GUARD REMEDY 4 OZ OINT TP SCH (12:28)
[2019-09-26] MEDS: LORAZEPAM INJ 2 MG/ML VIAL IV PRN ×2 (12:50→22:58)
--- NOTE | 2019-09-26 12:50 | NUR ---
GIVEN 2 MG ATIVAN IV.
--- NOTE | 2019-09-26 14:30 | NUR ---
IN TO SEE PTMax
--- NOTE | 2019-09-26 15:33 | NUR ---
MORPHINE UP TO 5 MG PER HR.FAMILY HERE AT BEDSIDE MOST OF DAY.
[2019-09-26 16:00] VITALS: BP 176/98
--- NOTE | 2019-09-26 16:00 | NUR ---
SEALING MACHINE OPERATOR IN TO SEE PT.
--- NOTE | 2019-09-26 19:30 | NUR ---
MS RN NURSE/HOSPICE RECEIVED ON BED,OPEN EYES,DNR/DNI STATUS.ON HOSPICE CARE.MORPHINE DRIP IN PROGRESS AT 5ML/HR RATE.SALINE LOCK LEFT HAND INTACT AND PATENT.ISOLATION PRECAUTION FOR DROPLET INFECTION.ON BACTROBAN.FAMILY MEMBERS AT BEDSIDE.WILL CONTINUE TO MONITOR STATUS.
[2019-09-26 20:00] VITALS: BP 173/92
[2019-09-26] MEDS ORDERED: risperiDONE 1 MG TABLET PO SCH (22:00)
--- NOTE | 2019-09-26 22:00 | NUR ---
MS RN NOTES/HOSPICE MORPHINE DRIP INCREASED TO 7MG/HR RATE.
--- NOTE | 2019-09-26 22:58 | NUR ---
MS RN NOTES/HOSPICE HAVING FACIAL GRIMACE,MEDICATED WITH ATIVAN 2MG IV ORDERED PRN
--- NOTE | 2019-09-27 01:30 | NUR ---
MS RN NOTES/HOSPICE APPEARS COMFORTABLE,WITH 12 BREATHS PER MINUTE.SON AT BEDSIDE.
[2019-09-27 02:12] VITALS: BP 173/92
--- NOTE | 2019-09-27 06:06 | NUR ---
MS RN NOTES BREATH 16-17/MINUTE,MORPHINE INCREASED TO 9MG/MINUTES,SON AWARE.
--- NOTE | 2019-09-27 06:39 | NUR ---
MS RN NOTES/HOSPICE MORPHINE DRIP REMAINS AT 9ML./HR RATE.APPEARS COMFORTABLE.SON AT BEDSIDE.REPOSITION TO COMFORT.WILL ENDORSE TO DAY NURSE FOR JEF.
[2019-09-27] MEDS ORDERED: KEY,NONCONTROL,TO KEEP IN PYXI 1 EA MC ONE ×2 (07:36→08:25)
--- NOTE | 2019-09-27 07:36 | NUR ---
MS RN NOTES PATIENT IS COMFORTABLE AND NO DISTRESS NOTED AT THIS TIME. FAMILY MEMBER AT BED SIDE. WILL CONTINUE TO MONITOR.
--- NOTE | 2019-09-27 07:39 | NUR ---
MS RN NOTES STK-MED NON CONTROL CHECKED WITH PHARMACY AND IS NOT DELIVERED YET.
[2019-09-27] MEDS: Z GUARD REMEDY 4 OZ OINT TP SCH (10:10)
--- NOTE | 2019-09-27 10:10 | NUR ---
MS RN NOTES PATIENT AT 1010 NOTIFIED AND FAMILY MEMBER, HOSPICE.
--- NOTE | 2019-09-27 10:27 | NUR ---
MS RN NOTES PATIENT AND LAST BAG OF MORPHINE WAS NOT ADMINISTRATED TO PATIENT. RETURNED THE SULLIVAN AND MED IN LOCK BOX IN MED ROOM. NOTIFIED PHARMACY.
--- NOTE | 2019-09-27 10:30 | NUR ---
MS RN NOTES PAIN MEDICATION NO T ADMINISTRATED PATIENT .
--- NOTE | 2019-09-27 13:20 | NUR ---
MS RN NOTES [place] [facility] [place] AND FRED AREVALO[place]
== END 2019-09-27 10:10 | disposition expired | DRG 199 ==
LOC: HOSPICE 18:44
PROVIDERS: ADMIT Nurse Practitioner Acute Care; ATTEND Nurse Practitioner Acute Care
DX: I16.1 Hypertensive emergency (principal); E43 Unspecified severe protein-calorie malnutrition; Z51.5 Encounter for palliative care; Z66 Do not resuscitate; G93.41 Metabolic encephalopathy; D68.59 Other primary thrombophilia; G30.9 Alzheimer's disease, unspecified; D63.1 Anemia in chronic kidney disease; I73.9 Peripheral vascular disease, unspecified; F02.80 Dementia in other diseases classified elsewhere, unspecified severity, without behavioral disturbance, psychotic disturbance, mood disturbance, and anxiety; Z68.23 Body mass index [BMI] 23.0-23.9, adult; I12.9 Hypertensive chronic kidney disease with stage 1 through stage 4 chronic kidney disease, or unspecified chronic kidney disease; I25.10 Atherosclerotic heart disease of native coronary artery without angina pectoris; K21.9 Gastro-esophageal reflux disease without esophagitis; N18.9 Chronic kidney disease, unspecified; N40.0 Benign prostatic hyperplasia without lower urinary tract symptoms; Z96.641 Presence of right artificial hip joint; Z98.61 Coronary angioplasty status; M19.90 Unspecified osteoarthritis, unspecified site; F31.9 Bipolar disorder, unspecified; E03.9 Hypothyroidism, unspecified; D72.829 Elevated white blood cell count, unspecified
CPT/HCPCS: A4216; G0378; J0360; J2060; J2274; J7050; J7060